=== PATIENT | female | born 1945 | race Caucasian/White ===

== ENCOUNTER 2016-11-10 18:14 | Inpatient (IN) | payer MEDICARE ==
[~2016-11-10] VITALS: Ht 162.6 cm; Wt 80.0 kg
[~2016-11-10 18:14] MED LIST: CALC-197 PO; DOCU1CAP39 PO; LOSA25TA31 PO; OCUTTAB; OMEP20TA PO; OMPR20CCR PO; OXYC-360 PO; RIVA10 PO; TAB-TAB PO; VITA500T10 PO; VITA500T49 PO
[2016-11-10 20:34] VITALS: BP 124/71; PULSE 104; RESP 18; TEMP 100.2; O2SAT 94
--- NOTE | 2016-11-10 21:01 | PD ---
HPI Chief Complaint: GI Complaint Time Seen by Provider: 20:50 Travel History International Travel<30 days: No Contact w/Intl Traveler<30days: No Traveled to known affect area: No History of Present Illness HPI 71-year-old female presents the emergency department after being seen in the urgent care with witnessed episode of santos blood in her emesis and transferred by EMS for santos blood in the emesis as well as black tarry stools since yesterday. Patient states she felt she had some food poisoning which caused her to have some vomiting through the day yesterday which then got progressively worse today. Patient states she has a history of this approximately 6 months ago where she was hospitalized and had an endoscopy and colonoscopy without finding of active bleeding at that time. Patient currently is taking Prilosec as well as meloxicam and losartan. She currently is not complaining of pain, only nausea. She is allergic to nabumetone. PFSH Past Medical History Arthritis: Yes Cancer: No Cardiovascular Problems: Yes Diabetes: No Endocrine: No GERD: Yes Glaucoma: No Genitourinary: No Hepatitis: No Hiatal Hernia: No Hypertension: Yes Immune Disorder: No Musculoskeletal: Yes Neurologic: No Psychiatric: No Reproductive: No Respiratory: No Thyroid Disease: No ?: Not Past Surgical History Abdominal Surgery: Yes (SPLENECTOMY) Joint Replacement: Yes (LEFT KNEE) Pacemaker: No Social History Alcohol Use: No Tobacco Use: No Substance Use: No Allergies-Medications (Allergen,Severity, Reaction): Coded Allergies: Nabumetone (Unverified Allergy, Unknown, 11/10/16) Reported Meds & Prescriptions Reported Meds & Active Scripts Active Reported Glucosamine (Glucosamine Sulfate) 500 Mg Cap 500 Mg PO DAILY Calcium 600 + D (Calcium Carbonate-Cholecalciferol) 600-200 Mg-Unit Tab 1 Tab PO BID Vitamin C (Ascorbic Acid) 100 Mg Chew 100 Mg CHEW Aspirin 81 Mg Tabdr 81 Mg PO DAILY Prilosec (Omeprazole) 20 Mg Cap 20 Mg PO DAILY [amlodipine besylate] 25 Mg PO DAILY Meloxicam 15 Mg Tab 15 Mg PO DAILY Review of Systems General / Constitutional: No: Fever Eyes: No: Visual changes HENT: Positive: Lightheadedness (upon standing today.), No: Headaches Cardiovascular: No: Chest Pain or Discomfort Respiratory: No: Shortness of Breath Gastrointestinal: Positive: Nausea, Vomiting, Hematemesis, Hematochezia, Changes in Bowel Habits, Loss of Appetite, No: Diarrhea, Abdominal Pain Genitourinary: No: Dysuria Musculoskeletal: No: Pain Skin: No Rash Neurologic: No: Weakness Psychiatric: No: Depression Endocrine: No: Polydipsia Hematologic/Lymphatic: No: Easy Bruising Physical Exam Narrative GENERAL: Patient appears in no acute distress. SKIN: Warm and dry. Normal turgor. Moderate pallor HEAD: Atraumatic. Normocephalic. EYES: Pupils equal and round. No scleral icterus. No injection or drainage. ENT: No nasal bleeding or discharge. Mucous membranes pink and moist. Pharynx is clear. NECK: Trachea midline. No JVD. Supple nontender. CARDIOVASCULAR: Regular rate and rhythm. No murmurs appreciated. RESPIRATORY: No accessory muscle use. Clear to auscultation. Breath sounds equal bilaterally. GASTROINTESTINAL: Abdomen soft, no specific point tenderness, nondistended. Hepatic and splenic margins not palpable. MUSCULOSKELETAL: Extremities without clubbing, cyanosis, or edema. No obvious deformities. NEUROLOGICAL: Awake and alert. No obvious cranial nerve deficits. Motor grossly within normal limits. Five out of 5 muscle strength in the arms and legs. Normal speech. PSYCHIATRIC: Appropriate mood and affect; insight and judgment normal. Data Data Last Documented VS Vital Signs Date Time Temp Pulse Resp B/P Pulse Ox O2 Delivery O2 Flow Rate FiO2 11/10/16 21:25 98.2 110 16 139/73 96 Room Air Orders Complete Blood Count With Diff (11/10/16 21:01) Comprehensive Metabolic Panel (11/10/16 21:) Lipase (11/10/16 21:01) Lactic Acid (11/10/16 21:01) Prothrombin Time / Inr (Pt) (11/10/16 21:01) Act Partial Throm Time (Ptt) (11/10/16 21:01) Urinalysis - C+S If Indicated (11/10/16 21:01) Iv Access Insert/Monitor (11/10/16 21:) Ecg Monitoring (11/10/16 21:) Oximetry (11/10/16 21:01) NPO (11/10/16 21:01) Ondansetron Inj (Zofran Inj) (11/10/16 21:15) Sodium Chloride 0.9% Flush (Ns Flush) (11/10/16 21:15) Electrocardiogram (11/10/16 21:01) Pantoprazole Inj (Protonix Inj) (11/10/16 21:15) Pantoprazole Inj (Protonix Inj) (11/10/16 21:15) Type And Screen (11/10/16 21:01) Admit Order (Ed Use Only) (11/10/16 23:03) Labs Laboratory Tests Test 11/10/16 21:31 White Blood Count 14.8 TH/MM3 Red Blood Count 4.27 MIL/MM3 Hemoglobin 9.8 GM/DL Hematocrit 31.9 % Mean Corpuscular Volume 74.7 FL Mean Corpuscular Hemoglobin 22.9 PG Mean Corpuscular Hemoglobin 30.6 % Concent Red Cell Distribution Width 16.3 % Platelet Count 511 TH/MM3 Mean Platelet Volume 8.3 FL Neutrophils (%) (Auto) 81.5 % Lymphocytes (%) (Auto) 14.8 % Monocytes (%) (Auto) 3.4 % Eosinophils (%) (Auto) 0.0 % Basophils (%) (Auto) 0.3 % Neutrophils # (Auto) 12.1 TH/MM3 Lymphocytes # (Auto) 2.2 TH/MM3 Monocytes # (Auto) 0.5 TH/MM3 Eosinophils # (Auto) 0.0 TH/MM3 Basophils # (Auto) 0.0 TH/MM3 CBC Comment AUTO DIFF Differential Comment AUTO DIFF CONFIRMED Platelet Estimate HIGH Platelet Morphology Comment NORMAL Acanthocytes OCC Keratocytes OCC Prothrombin Time 11.1 SEC Prothromb Time International 1.0 RATIO Ratio Activated Partial 21.8 SEC Thromboplast Time Urine Color LIGHT-YELLOW Urine Turbidity CLEAR Urine pH 5.5 Urine Specific [place] 1.013 Urine Protein NEG mg/dL Urine Glucose (UA) NEG mg/dL Urine Ketones NEG mg/dL Urine Occult Blood SMALL Urine Nitrite NEG Urine Bilirubin NEG Urine Urobilinogen LESS THAN 2.0 MG/DL Urine Leukocyte Esterase MOD Urine RBC LESS THAN 1 /hpf Urine WBC 6 /hpf Urine Squamous Epithelial <1 /hpf Cells Urine Bacteria RARE /hpf Microscopic Urinalysis Comment CULT NOT INDICATED Sodium Level 139 MEQ/L Potassium Level 3.8 MEQ/L Chloride Level 107 MEQ/L Carbon Dioxide Level 23.0 MEQ/L Anion Gap 9 MEQ/L Blood Urea Nitrogen 41 MG/DL Creatinine 0.78 MG/DL Estimat Glomerular Filtration 73 ML/MIN Rate Random Glucose 133 MG/DL Lactic Acid Level 1.8 mmol/L Calcium Level 8.0 MG/DL Total Bilirubin 0.4 MG/DL Aspartate Amino Transf 10 U/L (AST/SGOT) Alanine Aminotransferase 15 U/L (ALT/SGPT) Alkaline Phosphatase 87 U/L Total Protein 6.9 GM/DL Albumin 3.0 GM/DL Lipase 173 U/L Blood Type B NEGATIVE Antibody Screen NEGATIVE MDM Medical Decision Making Medical Screen Exam Complete: Yes Emergency Medical Condition: Yes Differential Diagnosis Upper GI bleed with hematemesis. Melena. Nausea and vomiting. Narrative Course Patient is medically stable at time of exam. Labs drawn including CBC, CMP, PT PTT and INR, urinalysis and type and screen 2 units is ordered. IV access is obtained patient is given a loading dose of 80 mg pantoprazole IV with pantoprazole 80 mg IV drip. 4 mg Zofran IV is given. Patient is given 1000 miles normal saline bolus. CBC shows leukocytosis of 14.8. Hemoglobin of 9.8 with hematocrit of 31.9. Platelets are elevated at 511. CMP shows BUN of 41. Creatinine of 0.78. Random glucose is 133. Calcium is 8.0. Is 3.0. Lactic acid is 1.8. Urinalysis shows small amount of occult blood, moderate = esterase with less than 1 rbc's seen and 6 white blood cells per high-power field with rare bacteria. Culture is not indicated. Coag study shows PT of 11.1 and INR 1.0. Call was placed to the hospitalist for admission. Patient was discussed with Dr. Aquino, who agreed to admit the patient. Diagnosis Primary Impression: GI (gastrointestinal bleed) Qualified Code: K92.2 - Gastrointestinal hemorrhage, unspecified gastrointestinal hemorrhage type Admitting Information Admitting Physician Requests: Admit Condition: Stable Salty Thompson Nov 10, 2016 21:01 Salty Thompson Nov 10, 2016 21:01
[2016-11-10] MEDS ORDERED: ONDANSETRON HCL 4 MG/2 ML VIAL IVP ONE (21:15)
[2016-11-10] MEDS ORDERED: SODIUM CHLORIDE 0.9% FLUSH 5 ML FLUSH IVF PRN (21:15)
[2016-11-10] MEDS ORDERED: PANTOPRAZOLE INJ 80 MG in SODIUM CHLORIDE 0.9% INJ 35 ML IV ONE (21:15)
[2016-11-10] MEDS ORDERED: PANTOPRAZOLE INJ 80 MG in SODIUM CHLORIDE 0.9% INJ 100 ML IV SCH (21:15)
[2016-11-10 21:25] VITALS: BP 139/73; PULSE 110; RESP 16; TEMP 98.2; O2SAT 96
--- NOTE | 2016-11-10 21:27 | PD ---
Physical Exam Date Seen by Provider: Nov 10, 2016 Narrative GI bleed Data Data Last Documented VS Vital Signs Date Time Temp Pulse Resp B/P Pulse Ox O2 Delivery O2 Flow Rate FiO2 11/10/16 20:34 100.2 104 18 124/71 94 Orders Complete Blood Count With Diff (11/10/16 21:01) Comprehensive Metabolic Panel (11/10/16 21:01) Lipase (11/10/16 21:01) Lactic Acid (11/10/16 21:01) Prothrombin Time / Inr (Pt) (11/10/16 21:01) Act Partial Throm Time (Ptt) (11/10/16 21:01) Urinalysis - C+S If Indicated (11/10/16 21:01) Iv Access Insert/Monitor (11/10/16 21:) Ecg Monitoring (11/10/16 21:01) Oximetry (11/10/16 21:01) NPO (11/10/16 21:01) Ondansetron Inj (Zofran Inj) (11/10/16 21:15) Sodium Chloride 0.9% Flush (Ns Flush) (11/10/16 21:15) Electrocardiogram (11/10/16 21:01) Pantoprazole Inj (Protonix Inj) (11/10/16 21:15) Pantoprazole Inj (Protonix Inj) (11/10/16 21:15) Type And Screen (11/10/16 21:01) MDM Supervised Visit with VEE: Yes Narrative Course I, Dr. Giraldo, have reviewed the advance practice practitioner's documentation and am in agreement, met with the patient face to face, made the diagnosis, and the medical decision making was done by me. *My assessment and Findings: Patient is pink. She has good distal pulses. Her abdomen is soft and nontender. Leona Giraldo MD Nov 10, 2016 21:27
[2016-11-10 21:44] LABS: AUTOMATED NEUTROPHIL # 12.1 TH/MM3 (1.8-7.7); BASOPHIL % 0.3 % (0.0-2.0); HEMATOCRIT 31.9 % (35.0-46.0); LYMPH % 14.8 % (9.0-44.0); LYMPHOCYTE # 2.2 TH/MM3 (1.0-4.8); MEAN CELL VOLUME 74.7 FL (80.0-100.0); MEAN CORPUSCULAR HEMOGLOBIN 22.9 PG (27.0-34.0); MEAN CORPUSCULAR HGB CONC 30.6 % (32.0-36.0); MONO % 3.4 % (0.0-8.0); NEUT % 81.5 % (16.0-70.0); PLATELET COUNT 511 TH/MM3 (150-450); RED BLOOD COUNT 4.27 MIL/MM3 (4.00-5.30); RED CELL DISTRIBUTION WIDTH 16.3 % (11.6-17.2); WHITE BLOOD COUNT 14.8 TH/MM3 (4.0-11.0)
[2016-11-10 21:47] LABS: HEMO FLAGS AUTO DIFF
[2016-11-10 21:54] LABS: APTT (PATIENT) 21.8 SEC (24.3-30.1); PROTHROMBIN TIME - PATIENT 11.1 SEC (9.8-11.6)
[2016-11-10 22:02] LABS: BACTERIA, URINE RARE /hpf; BLOOD, URINE SMALL (NEG); COMMENT (UR) CULT NOT INDICATED; CULTURE IF INDICATED CULT NOT INDICATED; GLUCOSE,URINE NEG (NEG); KETONE, URINE NEG (NEG); NITRITE,URINE NEG (NEG); PH, URINE 5.5 (5.0-8.5); SQUAMOUS EPITHELIAL CELL URINE <1 /hpf (0-5); URINE COLOR LIGHT-YELLOW (YELLW/STRAW)
[2016-11-10 22:04] LABS: ANION GAP 9 MEQ/L (5-15); AST (GOT) 10 U/L (15-37); BLOOD UREA NITROGEN 41 MG/DL (7-18); CHLORIDE 107 MEQ/L (98-107); GLOMERULAR FILTRATION RATE 73 ML/MIN (>89); POTASSIUM 3.8 MEQ/L (3.5-5.1); SODIUM (NA) 139 MEQ/L (136-145)
[2016-11-10 22:07] LABS: ALKALINE PHOSPHATASE 87 U/L (45-117); ALT (GPT) 15 U/L (10-53); TOTAL BILIRUBIN ADULT 0.4 MG/DL (0.2-1.0)
[2016-11-10] MEDS ORDERED: VITA100C6 CHEW (22:20)
[2016-11-10] MEDS ORDERED: CALC1TAB30 PO (22:20)
[2016-11-10] MEDS ORDERED: PRIL20CA9 PO (22:20)
[2016-11-10] MEDS ORDERED: amlodipine besylate PO (22:20)
[2016-11-10] MEDS ORDERED: GLUC500C5 PO (22:20)
[2016-11-10] MEDS ORDERED: ASPI1TAB69 PO (22:20)
[2016-11-10] MEDS ORDERED: MELO-1 PO (22:20)
[2016-11-10 22:45] LABS: ACANTHOCYTES OCC (NORMAL); KERATOCYTES OCC (NORMAL); PLATELET ESTIMATE SMEAR HIGH (NORMAL); PLATELET MORPHOLOGY NORMAL (NORMAL); SCAN/DIFF AUTO DIFF CONFIRMED
--- NOTE | 2016-11-10 23:14 | HHI.HP ---
HPI Service [facility] Primary Care Physician Tomasz Mims MD Admission Diagnosis GI Bleed Diagnoses: (1) GI (gastrointestinal bleed) Diagnosis: Principal (2) Sepsis Diagnosis: Principal (3) UTI (urinary tract infection) Diagnosis: Principal Travel History International Travel<30 Days: No Contact w/Intl Traveler <30 Da: No Traveled to Known Affected Are: No History of Present Illness Is a 71-year-old female with a PMH of HTN and GERD who was sent to the ER from [facility] secondary to hematemesis and melena x1 day. Pt reports nausea/vomiting since yesterday w/ no significant improvement. While at Urgent Care had recurrent episode of vomiting, noted to have bloody emesis and referred to ER. On ASA and Mobic at home. On arrival, BP 124/71, HR 104, O2 sat 94% on RA, Temp 100.2. WBC 14.8. Hgb 9.8, previously 12.6 on 05/16/12. BUN 41, GFR 73. Lactic Acid normal. LFTs normal. UA positive for UTI. Started on Protonix gtt in ER. GI consulted by ER physician. Review of Systems Except as stated in HPI: all other systems reviewed are Neg ROS: 14 point review of systems otherwise negative. Past Family Social History Past Medical History PMH: HTN and GERD Past Surgical History PAST SURGICAL HISTORY: Splenectomy, Left Knee Replacement Allergies: Coded Allergies: Nabumetone (Unverified Allergy, Unknown, 11/10/16) Family History PAST FAMILY HISTORY: Reviewed. No h/o DM or CAD Social History PAST SOCIAL HISTORY: Negative for alcohol, tobacco or drugs. Physical Exam Vital Signs Vital Signs Date Time Temp Pulse Resp B/P Pulse Ox O2 Delivery O2 Flow Rate FiO2 11/10/16 21:25 98.2 110 16 139/73 96 Room Air 11/10/16 20:34 100.2 104 18 124/71 94 Physical Exam PE: GENERAL: Middle-aged white female in no acute distress, appears mildly pale. HEENT: PERRLA, EOMI. No scleral icterus or conjunctival pallor. No lid lag or facial droop. CARDIOVASCULAR: Regular rate and rhythm. No obvious murmurs to auscultation. No chest tenderness to palpation. RESPIRATORY: No obvious rhonchi or wheezing. Clear to auscultation. Breath sounds equal bilaterally. GASTROINTESTINAL: Abdomen soft, non-tender, nondistended. BS normal. MUSCULOSKELETAL: Extremities without clubbing, cyanosis, or edema. No obvious deformities. NEUROLOGICAL: Awake, alert and oriented x4. No focal neurologic deficits. Moving both upper and lower extremities spontaneously. Laboratory Laboratory Tests Test 11/10/16 21:31 White Blood Count 14.8 Red Blood Count 4.27 Hemoglobin 9.8 Hematocrit 31.9 Mean Corpuscular Volume 74.7 Mean Corpuscular Hemoglobin 22.9 Mean Corpuscular Hemoglobin 30.6 Concent Red Cell Distribution Width 16.3 Platelet Count 511 Mean Platelet Volume 8.3 Neutrophils (%) (Auto) 81.5 Lymphocytes (%) (Auto) 14.8 Monocytes (%) (Auto) 3.4 Eosinophils (%) (Auto) 0.0 Basophils (%) (Auto) 0.3 Neutrophils # (Auto) 12.1 Lymphocytes # (Auto) 2.2 Monocytes # (Auto) 0.5 Eosinophils # (Auto) 0.0 Basophils # (Auto) 0.0 CBC Comment AUTO DIFF Differential Comment AUTO DIFF CONFIRMED Platelet Estimate HIGH Platelet Morphology Comment NORMAL Acanthocytes OCC Keratocytes OCC Prothrombin Time 11.1 Prothromb Time International 1.0 Ratio Activated Partial 21.8 Thromboplast Time Urine Color LIGHT-YELLOW Urine Turbidity CLEAR Urine pH 5.5 Urine Specific [place] 1.013 Urine Protein NEG Urine Glucose (UA) NEG Urine Ketones NEG Urine Occult Blood SMALL Urine Nitrite NEG Urine Bilirubin NEG Urine Urobilinogen LESS THAN 2.0 Urine Leukocyte Esterase MOD Urine RBC LESS THAN 1 Urine WBC 6 Urine Squamous Epithelial <1 Cells Urine Bacteria RARE Microscopic Urinalysis Comment CULT NOT INDICATED Sodium Level 139 Potassium Level 3.8 Chloride Level 107 Carbon Dioxide Level 23.0 Anion Gap 9 Blood Urea Nitrogen 41 Creatinine 0.78 Estimat Glomerular Filtration 73 Rate Random Glucose 133 Lactic Acid Level 1.8 Calcium Level 8.0 Total Bilirubin 0.4 Aspartate Amino Transf 10 (AST/SGOT) Alanine Aminotransferase 15 (ALT/SGPT) Alkaline Phosphatase 87 Total Protein 6.9 Albumin 3.0 Lipase 173 Blood Type B NEGATIVE Antibody Screen NEGATIVE Result Diagram: 11/10/16213011/10/162130 Assessment and Plan Problem List: (1) GI (gastrointestinal bleed) ICD Code: K92.2 Status: Acute (2) Sepsis ICD Code: A41.9 Status: Acute (3) UTI (urinary tract infection) ICD Code: N39.0 Status: Acute Assessment and Plan A/P: 1. GI Bleed: acute onset of nausea/vomiting w/ hematemesis and melena x1 day. Hgb 9.8, previously 12.6 on 05/16/12, +pallor on exam. Type & Screen, repeat Hgb/Hct, transfuse as needed. GI Consulted by ER physician. Started on Protonix gtt. IVF for hydration. Hold home ASA/Mobic. 2. Sepsis: Temp 100.2, HR 104, WBC 14.8, Source-UTI. Follow up urine cultures. Start IV Rocephin, IVF for hydration. 3. UTI: U/a w/ UTI. Start on IV Abx as above, IVF for hydration. 4. DVT Prophylaxis: Pharmacologic contraindications secondary to GI Bleed. 5. [employer] worker DC planning as needed. 6. Case discussed at length with the ER physician. Physician Certification 2 Midnight Certification Type: Admission for Inpatient Services Order for Inpatient Services The services are ordered in accordance with Medicare regulations or non- Medicare payer requirements, as applicable. In the case of services not specified as inpatient-only, they are appropriately provided as inpatient services in accordance with the 2-midnight benchmark. Estimated LOS (days): 2 days is the estimated time the patient will need to remain in the hospital, assuming treatment plan goals are met and no additional complications. Post-Hospital Plan: Not yet determined Problem Qualifiers (1) GI (gastrointestinal bleed): Qualified Code: K92.2 - Gastrointestinal hemorrhage, unspecified gastrointestinal hemorrhage type Britt Aquino MD Nov 10, 2016 23:14
[2016-11-10] MEDS ORDERED: MORPHINE SULFATE 4 MG/ML INJ IV PRN (23:15)
[2016-11-10] MEDS ORDERED: ONDANSETRON HCL 4 MG/2 ML VIAL IVP PRN (23:15)
[2016-11-10] MEDS ORDERED: SODIUM CHLORIDE 0.9% FLUSH 5 ML FLUSH FLUSH PRN (23:15)
[2016-11-10] MEDS ORDERED: ACETAMINOPHEN 325 MG TAB PO PRN (23:15)
[2016-11-10] MEDS ORDERED: ACETAMINOPHEN/HYDROcodone 325 MG/5 MG TAB PO PRN (23:15)
[2016-11-10] MEDS ORDERED: BISACODYL 10 MG SUPP PR PRN (23:15)
[2016-11-10] MEDS: cefTRIAXone INJ 1,000 MG in SODIUM CHLORIDE 0.9% INJ 100 ML IV SCH (23:54)
[2016-11-10] MEDS: SODIUM CHLOR 0.9% 1000 ML INJ 1,000 ML IV SCH (23:54)
[2016-11-10 23:56] VITALS: BP 108/57; PULSE 97; RESP 14; O2SAT 96
[2016-11-11] VITALS (9 sets, daily range): BP systolic 107–120; BP diastolic 60–68; PULSE 75–103; RESP 14–18; TEMP 97.8–98.3; O2SAT 95–99
[2016-11-11 05:20] LABS: AUTOMATED NEUTROPHIL # 10.2 TH/MM3 (1.8-7.7); BASOPHIL # 0.1 TH/MM3 (0-0.2); BASOPHIL % 0.4 % (0.0-2.0); LYMPH % 20.5 % (9.0-44.0); MEAN CELL VOLUME 75.5 FL (80.0-100.0); MEAN CORPUSCULAR HEMOGLOBIN 23.3 PG (27.0-34.0); MEAN CORPUSCULAR HGB CONC 30.9 % (32.0-36.0); MONO % 8.5 % (0.0-8.0); NEUT % 70.6 % (16.0-70.0); PLATELET COUNT 410 TH/MM3 (150-450); RED BLOOD COUNT 3.45 MIL/MM3 (4.00-5.30); RED CELL DISTRIBUTION WIDTH 16.3 % (11.6-17.2); WHITE BLOOD COUNT 14.5 TH/MM3 (4.0-11.0)
[2016-11-11 05:28] LABS: ANION GAP 8 MEQ/L (5-15); AST (GOT) 7 U/L (15-37); BICARBONATE 23.2 MEQ/L (21.0-32.0); BLOOD UREA NITROGEN 34 MG/DL (7-18); CHLORIDE 112 MEQ/L (98-107); GLOMERULAR FILTRATION RATE 73 ML/MIN (>89); POTASSIUM 3.5 MEQ/L (3.5-5.1); SODIUM (NA) 143 MEQ/L (136-145)
[2016-11-11 05:33] LABS: ALKALINE PHOSPHATASE 66 U/L (45-117); ALT (GPT) 11 U/L (10-53); TOTAL BILIRUBIN ADULT 0.4 MG/DL (0.2-1.0)
[2016-11-11 05:37] LABS: HEMO FLAGS AUTO DIFF
[2016-11-11 07:37] LABS: ACANTHOCYTES OCC (NORMAL); KERATOCYTES OCC (NORMAL); OVALOCYTES 1+ (NORMAL); SCAN/DIFF AUTO DIFF CONFIRMED; SPHEROCYTES OCC (NORMAL)
--- NOTE | 2016-11-11 07:53 | PD.CONS ---
HPI History of Present Illness This is a 71 year old female with PMH of HTN, GERD ( under control with Prilosec ) presents to the ER with complaints of melena, hematemesis that started on around 5 am. Patient states she was having black tarry stools and multiple coffee ground emesis up till 3 pm when she finally went to the urgent care for evaluation, while there, she had bloody emesis and was sent to the ER. Patient has no previous history of this, at first she thought this food poison, she took Imodium yesterday and that helped with stopping the stools. Last episode of hematemesis or melena was yesterday, none today. She takes Meloxicam once daily for a long time, she is also on ASA and Mobic. Denies alcohol intake. hgb on presentation was 9.8 ---> 8.1 today, was started on Protonix gtt. Of note, patient had EGD/colonoscopy on (04/13/16)-----> internal hemorrhoids, thrombosed hemorrhoids, diverticulosis, sessile polyp in the sigmoid, large hiatal hernia, acute gastritis, bx revealed tubular adenoma. On admission she had temp of 100.2, tachycardiac, elevated WBC and was found to have UTI (Henry Lawrence) PFSH Past Medical History PMH: HTN ,GERD, Hiatal hernia, diverticulosis Past Surgical History PAST SURGICAL HISTORY: Splenectomy, Left Knee Replacement, EGD/colonoscopy ( Henry Lawrence) Coded Allergies: Nabumetone (Unverified Allergy, Unknown, 11/10/16) Medications Current Medications Medications (Trade) Dose Ordered Sig/Masood Route Start Time Stop Time Status Last Admin Pantoprazole Sodium 80 mg/ Sodium Chloride 100 ml @ 10 mls/hr CONTINUOUS IV 11/10/16 21:15 11/10/16 23:42 (NS 1000 ml Inj) 1,000 ml @ 100 mls/hr Q10H IV 11/10/16 23:12 11/10/16 23:54 (NS Flush) 2 ml UNSCH PRN FLUSH 11/10/16 23:15 (NS Flush) 2 ml BID FLUSH 11/11/16 09:00 (Zofran Inj) 4 mg Q6H PRN IVP 11/10/16 23:15 (Dulcolax Supp) 10 mg DAILY PRN SD 11/10/16 23:15 (Tylenol) 650 mg Q6H PRN PO 11/10/16 23:15 ([place] 5-325 Mg) 1 tab Q4H PRN PO 11/10/16 23:15 Morphine Sulfate 2 mg 2 mg Q3H PRN IV 11/10/16 23:15 (Rocephin Inj/NS Inj) 100 ml @ 200 mls/hr Q24H IV 11/11/16 00:00 11/10/16 23:54 Family History Father had gastric cancer Social History PAST SOCIAL HISTORY: Negative for alcohol, tobacco or drugs. (Henry Lawrence ) Review of Systems Constitutional: DENIES: Fever, Chills Endocrine: DENIES: Polyuria Eyes: DENIES: Double Vision Ears, nose, mouth, throat: DENIES: Hoarseness Respiratory: DENIES: Shortness of breath Cardiovascular: DENIES: Lower Extremity Edema Gastrointestinal: COMPLAINS OF: Black stools, Diarrhea, Nausea, Vomiting, Hematemesis, DENIES: Abdominal pain, Bloody stools, Constipation, Difficulty Swallowing, Anorexia, Odynophagia, Swelling of Abdomen, Heartburn Genitourinary: DENIES: Hematuria Musculoskeletal: DENIES: Neck pain Integumentary: DENIES: Jaundice Hematologic/lymphatic: DENIES: Bruising Immunologic/allergic: DENIES: Eczema Neurologic: DENIES: Abnormal gait Psychiatric: DENIES: Anxiety (Henry Lawrence) GI Exam Vitals I&O Vital Signs Date Time Temp Pulse Resp B/P Pulse Ox O2 Delivery O2 Flow Rate FiO2 11/11/16 04:00 80 14 107/60 95 Nasal Cannula 2 11/11/16 02:01 75 16 120/68 99 Room Air 11/10/16 23:56 97 14 108/57 96 Room Air 11/10/16 21:25 98.2 110 16 139/73 96 Room Air 11/10/16 20:34 100.2 104 18 124/71 94 Laboratory Test 11/10/16 11/11/16 21:31 04:45 White Blood Count 14.8 TH/MM3 14.5 TH/MM3 Red Blood Count 4.27 MIL/MM3 3.45 MIL/MM3 Hemoglobin 9.8 GM/DL 8.1 GM/DL Hematocrit 31.9 % 26.0 % Mean Corpuscular Volume 74.7 FL 75.5 FL Mean Corpuscular Hemoglobin 22.9 PG 23.3 PG Mean Corpuscular Hemoglobin 30.6 % 30.9 % Concent Red Cell Distribution Width 16.3 % 16.3 % Platelet Count 511 TH/MM3 410 TH/MM3 Mean Platelet Volume 8.3 FL 8.4 FL Neutrophils (%) (Auto) 81.5 % 70.6 % Lymphocytes (%) (Auto) 14.8 % 20.5 % Monocytes (%) (Auto) 3.4 % 8.5 % Eosinophils (%) (Auto) 0.0 % 0.0 % Basophils (%) (Auto) 0.3 % 0.4 % Neutrophils # (Auto) 12.1 TH/MM3 10.2 TH/MM3 Lymphocytes # (Auto) 2.2 TH/MM3 3.0 TH/MM3 Monocytes # (Auto) 0.5 TH/MM3 1.2 TH/MM3 Eosinophils # (Auto) 0.0 TH/MM3 0.0 TH/MM3 Basophils # (Auto) 0.0 TH/MM3 0.1 TH/MM3 CBC Comment AUTO DIFF AUTO DIFF Differential Comment AUTO DIFF CONFIRMED Platelet Estimate HIGH Platelet Morphology Comment NORMAL Acanthocytes OCC Keratocytes OCC Prothrombin Time 11.1 SEC Prothromb Time International 1.0 RATIO Ratio Activated Partial 21.8 SEC Thromboplast Time Urine Color LIGHT-YELLOW Urine Turbidity CLEAR Urine pH 5.5 Urine Specific [place] 1.013 Urine Protein NEG mg/dL Urine Glucose (UA) NEG mg/dL Urine Ketones NEG mg/dL Urine Occult Blood SMALL Urine Nitrite NEG Urine Bilirubin NEG Urine Urobilinogen LESS THAN 2.0 MG/DL Urine Leukocyte Esterase MOD Urine RBC LESS THAN 1 /hpf Urine WBC 6 /hpf Urine Squamous Epithelial <1 /hpf Cells Urine Bacteria RARE /hpf Microscopic Urinalysis Comment CULT NOT INDICATED Sodium Level 139 MEQ/L 143 MEQ/L Potassium Level 3.8 MEQ/L 3.5 MEQ/L Chloride Level 107 MEQ/L 112 MEQ/L Carbon Dioxide Level 23.0 MEQ/L 23.2 MEQ/L Anion Gap 9 MEQ/L 8 MEQ/L Blood Urea Nitrogen 41 MG/DL 34 MG/DL Creatinine 0.78 MG/DL 0.78 MG/DL Estimat Glomerular Filtration 73 ML/MIN 73 ML/MIN Rate Random Glucose 133 MG/DL 103 MG/DL Lactic Acid Level 1.8 mmol/L Calcium Level 8.0 MG/DL 7.6 MG/DL Total Bilirubin 0.4 MG/DL 0.4 MG/DL Aspartate Amino Transf 10 U/L 7 U/L (AST/SGOT) Alanine Aminotransferase 15 U/L 11 U/L (ALT/SGPT) Alkaline Phosphatase 87 U/L 66 U/L Total Protein 6.9 GM/DL 5.6 GM/DL Albumin 3.0 GM/DL 2.7 GM/DL Lipase 173 U/L Blood Type B NEGATIVE Antibody Screen NEGATIVE Physical Examination HEENT: normocephalic; atraumatic; no jaundice. Throat is clear. NECK: Neck is supple, no JVD, no lymphadenopathy. CHEST: Chest is clear to auscultation and percussion. CARDIAC: Regular rate and rhythm with no murmur gallop or rubs. ABDOMEN: Soft, nondistended, nontender; no hepatosplenomegaly; bowel sounds are present in all four quadrants. EXTREMITIES: No clubbing, cyanosis, or edema. SKIN: Normal; no rash; no jaundice. 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 (Henry Lawrence) Assessment and Plan Plan - GI Bleed, hematemesis and melena x1 day. Differential diagnosis include PUD , gastric ulcer, bleeding from large hiatal hernia, She takes Meloxicam once daily for a long time, she is also on ASA and Mobic. Denies alcohol intake. hgb on presentation was 9.8 ---> 8.1 today, was started on Protonix gtt. Of note, patient had EGD/colonoscopy on (04/13/16)-----> internal hemorrhoids, thrombosed hemorrhoids, diverticulosis, sessile polyp in the sigmoid, large hiatal hernia, acute gastritis, bx revealed tubular adenoma. Protonix Gtt, iv hydration, monitor hh - Sepsis/UTI- Temp 100.2, HR 104, WBC 14.8, she is on IV Rocephin. - GERD under control with PPI - HTN per attending Plan: - NPO - EGD today - Cont. PPI Gtt - Monitor hh - Transfuse as needed - Notify Gi for active bleeding - Supportive care - Patient seen and examined by Dr. Hart and myself and this note is written on her behalf. (Henry Lawrence) Physician Comments seen, examined agree with above (Sandra Hart MD) Henry Lawrence Nov 11, 2016 07:53 Sandra Hart MD Nov 11, 2016 15:35
[2016-11-11] MEDS: SODIUM CHLOR 0.9% 1000 ML INJ 1,000 ML IV SCH ×2 (09:12→18:09)
[2016-11-11] MEDS: SODIUM CHLORIDE 0.9% FLUSH 5 ML FLUSH FLUSH SCH ×2 (09:18→20:42)
[2016-11-11] MEDS ORDERED: NORV2.5T PO (09:19)
[2016-11-11] MEDS ORDERED: PROPOFOL 200 MG/20 ML AMP IV ONE (10:20)
--- NOTE | 2016-11-11 11:23 | HHI.PR ---
Subjective Remarks in no acute distress. no nausea, hematemesis, abdominal pain. no diarrhea. had EGD earlier today. Objective Vitals Vital Signs Date Time Temp Pulse Resp B/P Pulse Ox O2 Delivery O2 Flow Rate FiO2 11/11/16 10:42 80 16 124/67 97 11/11/16 10:37 88 16 108/62 97 11/11/16 10:32 98.5 89 16 87/59 95 11/11/16 09:43 98.3 90 18 108/68 96 11/11/16 09:18 98.3 90 18 108/68 96 Nasal Cannula 11/11/16 07:41 16 11/11/16 07:25 98.3 81 18 114/61 97 Room Air 11/11/16 04:00 80 14 107/60 95 Nasal Cannula 2 11/11/16 02:01 75 16 120/68 99 Room Air 11/10/16 23:56 97 14 108/57 96 Room Air 11/10/16 21:25 98.2 110 16 139/73 96 Room Air 11/10/16 20:34 100.2 104 18 124/71 94 I/O 11/10/16 11/10/16 11/10/16 11/11/16 11/11/16 11/11/16 07:00 15:00 23:00 07:00 15:00 23:00 Intake Total 400 ml Balance 400 ml Intake IV Total 400 ml Result Diagram: 11/11/16 0445 11/11/16 0445 Objective Remarks GENERAL: This is a well-nourished, well-developed patient, in no apparent distress. CARDIOVASCULAR: Regular rate and regular rhythm without murmurs, gallops, or rubs. RESPIRATORY: Clear to auscultation. Breath sounds equal bilaterally. No wheezes , rales, or rhonchi. GASTROINTESTINAL: Abdomen soft, non-tender, nondistended. Normal, active bowel sounds MUSCULOSKELETAL: Extremities without clubbing, cyanosis, or edema. NEURO: Alert & Oriented x4 to person, place, time, situation. Moves all ext x4 Procedures EGD Medications and IVs Current Medications Ondansetron HCl (Zofran Inj) 4 mg ONCE ONCE IVP ; Start 11/10/16 at 21:15; Stop 11/10/16 at 21:16; Status DC IV Flush 2 ml 2 ml UNSCH PRN IVF FLUSH AFTER USING IV ACCESS; Start 11/10/16 at 21:15; Stop 11/10/16 at 23:20; Status DC Pantoprazole Sodium 80 mg/ Sodium Chloride 35 ml @ 420 mls/hr BOLUS ONCE IV Last administered on 11/10/16 22:47; Start 11/10/16 at 21:15; Stop 11/10/16 at 21:19; Status DC Pantoprazole Sodium 80 mg/ Sodium Chloride 100 ml @ 10 mls/hr CONTINUOUS IV Last administered on 11/10/16 23:42; Start 11/10/16 at 21:15 Sodium Chloride (NS 1000 ml Inj) 1,000 ml @ 100 mls/hr Q10H IV Last administered on 11/10/16 23:54; Start 11/10/16 at 23:12 IV Flush (NS Flush) 2 ml UNSCH PRN FLUSH FLUSH AFTER USING IV ACCESS; Start at 23:15 IV Flush (NS Flush) 2 ml BID FLUSH Last administered on 11/11/16 09:18; Start 11/11/16 at 09:00 Ondansetron HCl (Zofran Inj) 4 mg Q6H PRN IVP NAUSEA OR VOMITING; Start at 23:15 Bisacodyl (Dulcolax Supp) 10 mg DAILY PRN ME CONSTIPATION; Start 11/10/16 at 23 :15 Acetaminophen (Tylenol) 650 mg Q6H PRN PO FEVER/PAIN SCALE 1 TO 2; Start at 23:15 Acetaminophen/ Hydrocodone Bitart ([place] 5-325 Mg) 1 tab Q4H PRN PO PAIN SCALE 3 TO 5; Start 11/10/16 at 23:15 Morphine Sulfate 2 mg 2 mg Q3H PRN IV Pain 6-10; Start 11/10/16 at 23:15 Ceftriaxone Sodium/Sodium Chloride (Rocephin Inj/NS Inj) 100 ml @ 200 mls/hr Q24H IV Last administered on 11/10/16 23:54; Start 11/11/16 at 00:00 Propofol (Diprivan 200 Mg/20 ml Inj) 170 mg STK-MED ONCE IV ; Start 11/11/16 at 10:20; Stop 11/11/16 at 10:55; Status DC Diatrizoate Meglum/ Diatrizoate Sod ( Gastroview Liq) 18 ml ONCE ONCE PO ; Start 11/11/16 at 12:00; Stop 11/11/16 at 12:01 A/P Assessment and Plan A/P 1. GI Bleed: acute onset of nausea/vomiting w/ hematemesis and melena x1 day. continue PPI- GI consulted- s/p EGD with gastritis and Fundus superficial ulceration- CT of the abdomen pending. monitor H/H closely and transfuse as needed. 2. Sepsis: Temp 100.2, HR 104, WBC 14.8, Source-UTI. Follow up urine cultures. Started IV Rocephin, IVF for hydration. 3. UTI: U/a w/ UTI. Started on IV Abx as above, IVF for hydration. 4. DVT Prophylaxis: SCD's- Pharmacologic contraindications secondary to GI Bleed. Alonso Frank MD Nov 11, 2016 11:23
[2016-11-11] MEDS ORDERED: DIATRIZOATE MEGLUM/DIATRIZOATE SOD 9 ML CUP PO ONE (12:00)
[2016-11-11] MEDS ORDERED: IOHEXOL 350 MG/ML 10 ML VIAL (for RAD DIAG) IV ONE (14:44)
[2016-11-11] MEDS: PANTOPRAZOLE INJ 80 MG in SODIUM CHLORIDE 0.9% INJ 100 ML IV SCH (15:23)
--- NOTE | 2016-11-11 16:28 | RADRPT ---
EXAM DATE/TIME: 11/11/2016 14:26 [facility] COMPARISON: No previous studies available for comparison. INDICATIONS : Vomiting blood and blood in stool. Anemia. IV CONTRAST: 90 cc Omnipaque 350 (iohexol) IV ORAL CONTRAST: Prescribed oral contrast ingested. RADIATION DOSE: 9.96 CTDIvol (mGy) MEDICAL HISTORY : Hypertension. SURGICAL HISTORY : Splenectomy. ENCOUNTER: Initial ACUITY: 1 day PAIN SCALE: 0/10 LOCATION: upper quadrant TECHNIQUE: Volumetric scanning of the abdomen and pelvis was performed. Using automated exposure control and adjustment of the mA and/or kV according to patient size, radiation dose was kept as low as reasonably achievable to obtain optimal diagnostic quality images. FINDINGS: LOWER LUNGS: The visualized lower lungs are clear. LIVER: Homogeneous density without lesion. There is no dilation of the biliary tree. No calcifi ed gallstones. SPLEEN: Status post splenectomy. PANCREAS: Within normal limits. KIDNEYS: Normal in size and shape. There is no solid mass or hydronephrosis. There are small sim ple cysts current there is a 5 mm nonobstructing right renal calculus in the lower pole. ADRENAL GLANDS: Within normal limits. VASCULAR: There is no aortic aneurysm. 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 The fundal region is in the upper abdomen. ABDOMINAL WALL: Within normal limits. RETROPERITONEUM: There is no lymphadenopathy. BLADDER: No wall thickening or mass. REPRODUCTIVE: Within normal limits. INGUINAL: There is a mildly prominent oval node measuring 2.2 x 1.9 cm. MUSCULOSKELETAL: Within normal limits for patient age. CONCLUSION: 1. 5 mm nonobstructing right renal calculus. 2. Moderate size paraesophageal hernia with the mid body of the stomach herniated into the lower ches t. There is no evidence of obstruction. 3. Status post splenectomy. 4. Mildly prominent left inguinal lymph node measuring 2.2 x 1.9 cm. Kishan Mosley MD on November 11, 2016 at 16:01 Board Certified Radiologist. This report was verified electronically.
--- NOTE | 2016-11-11 17:12 | EKG ---
Date Performed: 11/10/2016 Time Performed: 21:55:54 PTAGE: 71 years EKG: SINUS TACHYCARDIA ABNORMAL RHYTHM ECG Poor R-wave progression. No specific ST-T wave change s in the inferior lead. Clinical correlation recommended. PREVIOUS TRACING : 05/04/2012 10.02 DOCTOR: Sonido Pitt Interpretating Date/Time 11/11/2016 17:01:37
[2016-11-12] VITALS (11 sets, daily range): BP systolic 101–137; BP diastolic 54–81; PULSE 78–107; RESP 15–20; TEMP 97.6–98.7; O2SAT 94–98
[2016-11-12] MEDS: PANTOPRAZOLE INJ 80 MG in SODIUM CHLORIDE 0.9% INJ 100 ML IV SCH ×3 (00:09→20:42)
[2016-11-12] MEDS: cefTRIAXone INJ 1,000 MG in SODIUM CHLORIDE 0.9% INJ 100 ML IV SCH (00:09)
[2016-11-12 05:11] LABS: AUTOMATED NEUTROPHIL # 6.5 TH/MM3 (1.8-7.7); BASOPHIL # 0.1 TH/MM3 (0-0.2); BASOPHIL % 0.8 % (0.0-2.0); EOSINOPHIL # 0.2 TH/MM3 (0-0.4); EOSINOPHIL % 1.7 % (0.0-4.0); HEMATOCRIT 22.2 % (35.0-46.0); LYMPH % 35.1 % (9.0-44.0); LYMPHOCYTE # 4.1 TH/MM3 (1.0-4.8); MEAN CORPUSCULAR HEMOGLOBIN 23.2 PG (27.0-34.0); MEAN CORPUSCULAR HGB CONC 30.9 % (32.0-36.0); NEUT % 55.4 % (16.0-70.0); PLATELET COUNT 389 TH/MM3 (150-450); RED BLOOD COUNT 2.95 MIL/MM3 (4.00-5.30); RED CELL DISTRIBUTION WIDTH 16.1 % (11.6-17.2); WHITE BLOOD COUNT 11.7 TH/MM3 (4.0-11.0)
[2016-11-12 05:20] LABS: HEMO FLAGS AUTO DIFF
[2016-11-12] MEDS: SODIUM CHLOR 0.9% 1000 ML INJ 1,000 ML IV SCH ×3 (06:30→20:42)
[2016-11-12 07:18] LABS: ACANTHOCYTES 1+ (NORMAL); KERATOCYTES OCC (NORMAL)
[2016-11-12 07:19] LABS: SCAN/DIFF AUTO DIFF CONFIRMED
[2016-11-12] MEDS: SODIUM CHLORIDE 0.9% FLUSH 5 ML FLUSH FLUSH SCH ×2 (08:29→20:42)
[2016-11-12] MEDS ORDERED: PNEUMOCOCCAL POLYVALENT INJ 25 MCG/0.5 ML SYR IM ONE (10:00)
[2016-11-12 11:41] LABS: C. DIFF EPI 027 PRESUMPTIVE NEGATIVE (NEGATIVE); C. DIFF TOXIN PCR NEGATIVE (NEGATIVE)
--- NOTE | 2016-11-12 13:56 | HHI.PR ---
Subjective Remarks still with black stools. noted a drop in H/H. received blood transfusion earlier. complaining of urinary urgency. Objective Vitals Vital Signs Date Time Temp Pulse Resp B/P Pulse Ox O2 Delivery O2 Flow Rate FiO2 11/12/16 12:00 97.9 83 17 123/68 94 11/12/16 08:41 98.4 91 16 114/81 96 11/12/16 08:33 98.2 91 16 135/73 96 11/12/16 08:00 98.7 85 17 116/57 94 11/12/16 04:00 97.9 80 17 101/54 96 11/12/16 00:00 98.3 91 17 123/72 98 11/11/16 20:00 97.8 103 17 118/64 98 11/11/16 16:00 98.2 86 18 114/68 98 I/O 11/11/16 11/11/16 11/11/16 11/12/16 11/12/16 11/12/16 07:00 15:00 23:00 07:00 15:00 23:00 Intake Total 1346 ml 1980 ml 240 ml 295 ml Output Total 250 ml Balance 1346 ml 1980 ml 240 ml 45 ml Intake Oral 946 ml 480 ml 240 ml IV Total 400 ml 1500 ml Packed Cells 295 ml Output Stool Total 250 ml # Voids 2 3 # Bowel Movements 4 2 Result Diagram: 11/12/16 0410 11/11/16 0445 Imaging Last Impressions Abdomen/Pelvis CT 11/11/16 0000 Signed Impressions: Service Date/Time: Friday, November 11, 2016 14:26 - CONCLUSION: 1. 5 mm nonobstructing right renal calculus. 2. Moderate size paraesophageal hernia with the mid body of the stomach herniated into the lower chest. There is no evidence of obstruction. 3. Status post splenectomy. 4. Mildly prominent left inguinal lymph node measuring 2.2 x 1.9 cm. Kishan Mosley MD Objective Remarks GENERAL: This is a well-nourished, well-developed patient, in no apparent distress. CARDIOVASCULAR: Regular rate and regular rhythm without murmurs, gallops, or rubs. RESPIRATORY: Clear to auscultation. Breath sounds equal bilaterally. No wheezes , rales, or rhonchi. GASTROINTESTINAL: Abdomen soft, non-tender, nondistended. Normal, active bowel sounds MUSCULOSKELETAL: Extremities without clubbing, cyanosis, or edema. NEURO: Alert & Oriented x4 to person, place, time, situation. Moves all ext x4 Procedures EGD Medications and IVs Current Medications Ondansetron HCl (Zofran Inj) 4 mg ONCE ONCE IVP ; Start 11/10/16 at 21:15; Stop 11/10/16 at 21:16; Status DC IV Flush 2 ml 2 ml UNSCH PRN IVF FLUSH AFTER USING IV ACCESS; Start 11/10/16 at 21:15; Stop 11/10/16 at 23:20; Status DC Pantoprazole Sodium 80 mg/ Sodium Chloride 35 ml @ 420 mls/hr BOLUS ONCE IV Last administered on 11/10/16 22:47; Start 11/10/16 at 21:15; Stop 11/10/16 at 21:19; Status DC Pantoprazole Sodium 80 mg/ Sodium Chloride 100 ml @ 10 mls/hr CONTINUOUS IV Last administered on 11/10/16 23:42; Start 11/10/16 at 21:15; Stop 11/11/16 at 14:50; Status DC Sodium Chloride (NS 1000 ml Inj) 1,000 ml @ 100 mls/hr Q10H IV Last administered on 11/12/16 11:26; Start 11/10/16 at 23:12 IV Flush (NS Flush) 2 ml UNSCH PRN FLUSH FLUSH AFTER USING IV ACCESS; Start at 23:15 IV Flush (NS Flush) 2 ml BID FLUSH Last administered on 11/12/16 08:29; Start 11/11/16 at 09:00 Ondansetron HCl (Zofran Inj) 4 mg Q6H PRN IVP NAUSEA OR VOMITING; Start at 23:15 Bisacodyl (Dulcolax Supp) 10 mg DAILY PRN DC CONSTIPATION; Start 11/10/16 at 23 :15 Acetaminophen (Tylenol) 650 mg Q6H PRN PO FEVER/PAIN SCALE 1 TO 2; Start at 23:15 Acetaminophen/ Hydrocodone Bitart ([place] 5-325 Mg) 1 tab Q4H PRN PO PAIN SCALE 3 TO 5; Start 11/10/16 at 23:15 Morphine Sulfate 2 mg 2 mg Q3H PRN IV Pain 6-10; Start 11/10/16 at 23:15 Ceftriaxone Sodium/Sodium Chloride (Rocephin Inj/NS Inj) 100 ml @ 200 mls/hr Q24H IV Last administered on 11/12/16 00:09; Start 11/11/16 at 00:00 Propofol (Diprivan 200 Mg/20 ml Inj) 170 mg STK-MED ONCE IV ; Start 11/11/16 at 10:20; Stop 11/11/16 at 10:55; Status DC Diatrizoate Meglum/ Diatrizoate Sod ( Gastroview Liq) 18 ml ONCE ONCE PO Last administered on 11/11/16 11:55; Start 11/11/16 at 12:00; Stop 11/11/16 at 12:01; Status DC Pneumococcal Polyvalent Vaccine (Pneumovax-23 Inj) 25 mcg ONCE ONCE IM ; Start 11/12/16 at 10:00; Stop 11/12/16 at 10:01; Status DC Iohexol 90 ml 90 ml STK-MED ONCE IV Last administered on 11/11/16 14:44; Start 11/11/16 at 14:44; Stop 11/11/16 at 14:45; Status DC Pantoprazole Sodium/Sodium Chloride (Protonix Inj/NS Inj) 100 ml @ 10 mls/hr Q10H IV Last administered on 11/12/16 11:24; Start 11/11/16 at 16:00 A/P Assessment and Plan A/P 1. GI Bleed: acute onset of nausea/vomiting w/ hematemesis and melena continue PPI- s/p EGD with gastritis and Fundus superficial ulceration- CT of the abdomen with paraesophageal hernia bleeding scan pending- GI following and surgery consulted 2.anemia- acute due to blood loss due to GI bleed received PRBC transfusion- will monitor H/H closely and transfuse as needed 3. Sepsisdue to [place]. Follow up urine cultures. Started IV Rocephin, IVF for hydration. repeat UA today. 4. DVT Prophylaxis: SCD's- Pharmacologic contraindications secondary to GI Bleed. Alonso Frank MD Nov 12, 2016 13:56
--- NOTE | 2016-11-12 14:25 | RADRPT ---
EXAM DATE/TIME: 11/12/2016 12:00 [facility] COMPARISON: No previous studies available for comparison. INDICATIONS : Blood in stool for one day. Rectal bleeding. DOSE: 20.2 mCi Tc99m Ultratag labeled red blood cells IV IMAGIN hr, 48 hrs MEDICAL HISTORY : Gastroesophageal reflux disease. Hypertension. SURGICAL HISTORY : Total knee replacement, left. Umbilical hernia repair. Splenectomy. ENCOUNTER: Initial ACUITY: 1 day PAIN SCALE: 0/10 LOCATION: upper quadrant TECHNIQUE: Following the modified in vitro labeling of autologous red cells, dynamic continuous images were acqu ired for the specified interval. FINDINGS: BIODISTRIBUTION: There is a very good labeling of red cells without significant uptake in the gastric wall. There is good delineation of the blood pool of the spleen and abdominal vessels. BLEEDING: No episodes of active GI bleeding are observed during specified interval of continuous observation. CONCLUSION: No GI bleed demonstrated. Eric Matthews MD on November 12, 2016 at 14:23 Board Certified Radiologist. This report was verified electronically.
--- NOTE | 2016-11-12 15:02 | HHI.GIFU ---
GI Follow-up Note Consult Follow-up Subjective: Patient laying in bed comfortably, had some black stool, bleeding scan negative . hb dropped , receiving prbc.Surgical consult appreciated Objective: PHYSICAL EXAMINATION: Vitals signs stable No fever Vital Signs Date Time Temp Pulse Resp B/P Pulse Ox O2 Delivery O2 Flow Rate FiO2 11/12/16 12:00 97.9 83 17 123/68 94 11/12/16 08:41 98.4 91 16 114/81 96 11/12/16 08:33 98.2 91 16 135/73 96 11/12/16 08:00 98.7 85 17 116/57 94 HEENT: Pupils round and reactive to light; normocephalic; atraumatic; no jaundice. Throat is clear, pale NECK: Neck is supple, no JVD, no lymphadenopathy. CHEST: Chest is clear to auscultation and percussion. CARDIAC: Regular rate and rhythm with no murmur gallop or rubs. ABDOMEN: Soft, nondistended, nontender; no hepatosplenomegaly; bowel sounds are present in all four quadrants. EXTREMITIES: No clubbing, cyanosis, or edema. SKIN: Normal; no rash; no jaundice. 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 Available Data (labs, X- Rays, Procedues) : Laboratory Tests Test 11/10/16 11/11/16 11/11/16 11/12/16 21:31 04:45 11:44 04:10 White Blood Count 14.8 TH/MM3 14.5 TH/MM3 11.7 TH/MM3 Red Blood Count 4.27 MIL/MM3 3.45 MIL/MM3 2.95 MIL/MM3 Hemoglobin 9.8 GM/DL 8.1 GM/DL 8.3 GM/DL 6.8 GM/DL Hematocrit 31.9 % 26.0 % 27.0 % 22.2 % Mean Corpuscular Volume 74.7 FL 75.5 FL 75.0 FL Mean Corpuscular Hemoglobin 22.9 PG 23.3 PG 23.2 PG Mean Corpuscular Hemoglobin 30.6 % 30.9 % 30.9 % Concent Red Cell Distribution Width 16.3 % 16.3 % 16.1 % Platelet Count 511 TH/MM3 410 TH/MM3 389 TH/MM3 Mean Platelet Volume 8.3 FL 8.4 FL 8.4 FL Neutrophils (%) (Auto) 81.5 % 70.6 % 55.4 % Lymphocytes (%) (Auto) 14.8 % 20.5 % 35.1 % Monocytes (%) (Auto) 3.4 % 8.5 % 7.0 % Eosinophils (%) (Auto) 0.0 % 0.0 % 1.7 % Basophils (%) (Auto) 0.3 % 0.4 % 0.8 % Neutrophils # (Auto) 12.1 TH/MM3 10.2 TH/MM3 6.5 TH/MM3 Lymphocytes # (Auto) 2.2 TH/MM3 3.0 TH/MM3 4.1 TH/MM3 Monocytes # (Auto) 0.5 TH/MM3 1.2 TH/MM3 0.8 TH/MM3 Eosinophils # (Auto) 0.0 TH/MM3 0.0 TH/MM3 0.2 TH/MM3 Basophils # (Auto) 0.0 TH/MM3 0.1 TH/MM3 0.1 TH/MM3 CBC Comment AUTO DIFF AUTO DIFF AUTO DIFF Differential Comment AUTO DIFF AUTO DIFF AUTO DIFF CONFIRMED CONFIRMED CONFIRMED Platelet Estimate HIGH Platelet Morphology Comment NORMAL Acanthocytes OCC OCC 1+ Keratocytes OCC OCC OCC Prothrombin Time 11.1 SEC Prothromb Time International 1.0 RATIO Ratio Activated Partial 21.8 SEC Thromboplast Time Urine Color LIGHT-YELLOW Urine Turbidity CLEAR Urine pH 5.5 Urine Specific [place] 1.013 Urine Protein NEG mg/dL Urine Glucose (UA) NEG mg/dL Urine Ketones NEG mg/dL Urine Occult Blood SMALL Urine Nitrite NEG Urine Bilirubin NEG Urine Urobilinogen LESS THAN 2.0 MG/DL Urine Leukocyte Esterase MOD Urine RBC LESS THAN 1 /hpf Urine WBC 6 /hpf Urine Squamous Epithelial <1 /hpf Cells Urine Bacteria RARE /hpf Microscopic Urinalysis Comment CULT NOT INDICATED Sodium Level 139 MEQ/L 143 MEQ/L Potassium Level 3.8 MEQ/L 3.5 MEQ/L Chloride Level 107 MEQ/L 112 MEQ/L Carbon Dioxide Level 23.0 MEQ/L 23.2 MEQ/L Anion Gap 9 MEQ/L 8 MEQ/L Blood Urea Nitrogen 41 MG/DL 34 MG/DL Creatinine 0.78 MG/DL 0.78 MG/DL Estimat Glomerular Filtration 73 ML/MIN 73 ML/MIN Rate Random Glucose 133 MG/DL 103 MG/DL Lactic Acid Level 1.8 mmol/L Calcium Level 8.0 MG/DL 7.6 MG/DL Total Bilirubin 0.4 MG/DL 0.4 MG/DL Aspartate Amino Transf 10 U/L 7 U/L (AST/SGOT) Alanine Aminotransferase 15 U/L 11 U/L (ALT/SGPT) Alkaline Phosphatase 87 U/L 66 U/L Total Protein 6.9 GM/DL 5.6 GM/DL Albumin 3.0 GM/DL 2.7 GM/DL Lipase 173 U/L Blood Type B NEGATIVE Antibody Screen NEGATIVE Spherocytes OCC Ovalocytes 1+ Erythrocyte Sedimentation Rate 6 mm/hr Test 11/12/16 11/12/16 05:53 09:30 Blood Type B NEGATIVE Crossmatch Leukocyte-Reduced Red Blood Cells Blood Bank Comment Stool C. difficile Toxin (PCR) NEGATIVE Stl C. difficile Toxin PRESUMPTIVE Epiderm 027 NEGATIVE ASSESSMENT/PLAN: microcytic anemia -suspect slow bleed from large hiatal hernia gi bleeding -stable at this time most likely secondary large hiatal hernia Recommendations soft diet transfuse to keep hb more than 8 capsule endoscopy op consider repeat colonoscopy if capsule endoscopy negative if gi w-up negative hematology consult fu op with surgery for possible hernia repair, biopsy of lymph node It was a pleasure seeing Layne Tellez. Thank you for this consult. Entered by: Sandra Valverde MD Nov 12, 2016 15:02
--- NOTE | 2016-11-12 16:11 | MB ---
cc: JANEY CHURCH M.D. DATE OF CONSULTATION: 11/12/2016. REASON FOR CONSULTATION: Acute blood loss anemia with hiatal hernia and left inguinal lymph node enlargement. HISTORY OF PRESENT ILLNESS: The patient is a 71-year-old female who was seen in the emergency room after being sent from urgent care with hematemesis and melena x1 day. The patient had some nausea and vomiting with no significant improvement. She was noted to have a hemoglobin of 9.8 with normal lactate and normal LFTs. The GI service was consulted and she underwent EGD by Dr. Hart. I have discussed the findings with her and the patient had some small ulcers that were superficial. CT of the abdomen demonstrated a paraesophageal hernia but no evidence of volvulus. REVIEW OF SYSTEMS: The review of systems is negative except for hypertension, GE reflux disease. All other reviewed systems are negative. PAST SURGICAL HISTORY: The past surgeries include: 1. Splenectomy. 2. Left total knee replacement in the past. ALLERGIES: NABUMETONE. MEDICATIONS: Her medications include: 1. Meloxicam. 2. Baby aspirin 81 milligrams. 3. Glucosamine 500 milligrams daily. 4. Vitamin C 100 milligrams daily 5. Meloxicam 15 milligrams p.o. daily. 6. Prilosec 20 milligrams p.o. daily. 7. Amlodipine 25 milligrams daily. SOCIAL HISTORY: She does not drink, smoke or use other substances. PHYSICAL EXAMINATION: GENERAL: The physical exam reveals with a female in no acute distress. VITAL SIGNS: Blood pressure 114/81, pulse 91, respirations 16, 96% saturation on room air and temperature 98.4. HEAD, EYES, EARS, NOSE, THROAT: Sclerae are anicteric. Pupils are reactive. CHEST: Chest is clear to auscultation. CARDIAC: Cardiac exam reveals regular rate and rhythm. ABDOMEN: Abdomen is soft and nontender. PULSES: Pulses are intact. EXTREMITIES: There is a well-healed longitudinal scar over the left knee. The patient has full range of motion all four extremities. LABORATORY DATA: Laboratory values demonstrate hemoglobin currently of 6.8 at 04:00 a.m. this morning. Hemoglobin was 9.8 yesterday. IMAGING STUDIES: The patient has just undergone bleeding scan prior to this dictation and it is complete and demonstrates no evidence of any bleeding. There is no activity above background. I have reviewed this with the radiologist and Dr. Hart, the sql consultant. I do not detect any adenopathy at this time and cannot appreciate it in the left groin. ASSESSMENT: GI hemorrhage. PLAN: 1. Will follow with you. 2. Agree with transfusion. 3. The patient may need to have a pill cam or push endoscopy depending on findings. 4. No surgery indicated at this time I do not believe the hiatal hernia is the cause of the blood loss, at least at the current time. Thank you for allowing us the opportunity to care for this patient with you. MD COOPER Lara/SAM /2:48 PM /4:04 PM
[2016-11-12 18:55] LABS: BLOOD, URINE TRACE (NEG); COMMENT (UR) CULT NOT INDICATED; CULTURE IF INDICATED CULT NOT INDICATED; GLUCOSE,URINE NEG (NEG); KETONE, URINE NEG (NEG); MUCUS URINE FEW /lpf (OCC); NITRITE,URINE NEG (NEG); PH, URINE 5.5 (5.0-8.5); SQUAMOUS EPITHELIAL CELL URINE 1 /hpf (0-5); URINE COLOR YELLOW (YELLW/STRAW)
[2016-11-12 20:15] LABS: HEMATOCRIT 29.7 % (35.0-46.0)
[2016-11-13] VITALS: BP 116/78; PULSE 91; RESP 20; TEMP 99.5; O2SAT 93
[2016-11-13] MEDS: cefTRIAXone INJ 1,000 MG in SODIUM CHLORIDE 0.9% INJ 100 ML IV SCH (00:19)
[2016-11-13 04:00] VITALS: BP 128/75; PULSE 87; RESP 20; TEMP 98.2; O2SAT 93
[2016-11-13 05:52] LABS: AUTOMATED NEUTROPHIL # 6.5 TH/MM3 (1.8-7.7); BASOPHIL # 0.1 TH/MM3 (0-0.2); EOSINOPHIL # 0.2 TH/MM3 (0-0.4); EOSINOPHIL % 2.1 % (0.0-4.0); HEMATOCRIT 28.6 % (35.0-46.0); LYMPH % 28.6 % (9.0-44.0); LYMPHOCYTE # 3.2 TH/MM3 (1.0-4.8); MEAN CELL VOLUME 74.9 FL (80.0-100.0); MEAN CORPUSCULAR HEMOGLOBIN 24.5 PG (27.0-34.0); MEAN CORPUSCULAR HGB CONC 32.8 % (32.0-36.0); MONO % 10.9 % (0.0-8.0); NEUT % 57.4 % (16.0-70.0); PLATELET COUNT 404 TH/MM3 (150-450); RED BLOOD COUNT 3.82 MIL/MM3 (4.00-5.30); RED CELL DISTRIBUTION WIDTH 16.7 % (11.6-17.2); WHITE BLOOD COUNT 11.3 TH/MM3 (4.0-11.0)
[2016-11-13 05:53] LABS: HEMO FLAGS AUTO DIFF
[2016-11-13] MEDS: SODIUM CHLORIDE 0.9% FLUSH 5 ML FLUSH FLUSH SCH (07:07)
[2016-11-13 07:27] LABS: ACANTHOCYTES 1+ (NORMAL); SCAN/DIFF AUTO DIFF CONFIRMED
[2016-11-13] MEDS: PANTOPRAZOLE INJ 80 MG in SODIUM CHLORIDE 0.9% INJ 100 ML IV SCH (07:50)
[2016-11-13 08:00] VITALS: BP 125/77; PULSE 83; RESP 17; TEMP 98.5; O2SAT 93
--- NOTE | 2016-11-13 10:23 | HHI.PR ---
Subjective Subjective Notes Feels great, up to chair. Wants to go home. Tolerating a diet, no signs of further bleeding. Objective Vitals/I&O Vital Signs Date Time Temp Pulse Resp B/P Pulse Ox O2 Delivery O2 Flow Rate FiO2 11/13/16 08:00 98.5 83 17 125/77 93 11/11/16 13:51 Room Air 11/11/16 04:00 2 Labs Laboratory Tests Test 11/12/16 11/12/16 11/13/16 18:32 19:55 04:56 Urine Color YELLOW Urine Turbidity CLEAR Urine pH 5.5 Urine Specific [place] 1.012 Urine Protein NEG Urine Glucose (UA) NEG Urine Ketones NEG Urine Occult Blood TRACE Urine Nitrite NEG Urine Bilirubin NEG Urine Urobilinogen LESS THAN 2.0 Urine Leukocyte Esterase NEG Urine RBC 1 Urine WBC 3 Urine Squamous Epithelial 1 Cells Urine Mucus FEW Microscopic Urinalysis Comment CULT NOT INDICATED Hemoglobin 9.6 9.4 Hematocrit 29.7 28.6 Haptoglobin 96 Iron Level 253 Ferritin 13 Lactate Dehydrogenase 172 Vitamin B12 Level 600 Folate 17.6 White Blood Count 11.3 Red Blood Count 3.82 Mean Corpuscular Volume 74.9 Mean Corpuscular Hemoglobin 24.5 Mean Corpuscular Hemoglobin 32.8 Concent Red Cell Distribution Width 16.7 Platelet Count 404 Mean Platelet Volume 8.2 Neutrophils (%) (Auto) 57.4 Lymphocytes (%) (Auto) 28.6 Monocytes (%) (Auto) 10.9 Eosinophils (%) (Auto) 2.1 Basophils (%) (Auto) 1.0 Neutrophils # (Auto) 6.5 Lymphocytes # (Auto) 3.2 Monocytes # (Auto) 1.2 Eosinophils # (Auto) 0.2 Basophils # (Auto) 0.1 CBC Comment AUTO DIFF Differential Comment AUTO DIFF CONFIRMED Acanthocytes 1+ Date/Time Procedure Status Source Growth 11/12/16 09:30 Cryptosporidium Exam Received Stool Stool Pending 11/12/16 09:30 Giardia Antigen (BECKY) Received Stool Stool Pending 11/11/16 14:00 Urine Culture - Final Complete Urine Clean Catch 10-50,000 CFU/ML MIXED GRAM POSITIVE ... 11/10/16 21:31 Urine Culture Ordered Urine Clean Catch Pending Abdomen: Non-distended, Non-tender Extremities: Other (L hand IV infiltration site with ice, mininmal edema.) A/P Assessment and Plan Hiatal hernia, anemia, negative scopes, negative bleeding scan. Hgb 9.4 after two units pRBC. Discussed pill camera to look at small intestinal mucosa for bleeding source as outpatient, pt understands. Can follow up with Dr Ponce as outpatient. OK for DC from surgical standpoint. Kofi Horn MD Nov 13, 2016 10:23
--- NOTE | 2016-11-13 11:00 | HHI.GIFU ---
GI Follow-up Note Consult Follow-up Subjective: Patient laying in bed comfortably, feeling better, s/p 2 units of prbc -hb stable.No active bleeding .Feeling better .Wants to go home .she will hold asa/meloxicam for now Objective: PHYSICAL EXAMINATION: Vitals signs stable No fever Vital Signs Date Time Temp Pulse Resp B/P Pulse Ox O2 Delivery O2 Flow Rate FiO2 11/13/16 08:00 98.5 83 17 125/77 93 11/13/16 04:00 98.2 87 20 128/75 93 HEENT: Pupils round and reactive to light; normocephalic; atraumatic; no jaundice. Throat is clear. NECK: Neck is supple, no JVD, no lymphadenopathy. CHEST: Chest is clear to auscultation and percussion. CARDIAC: Regular rate and rhythm with no murmur gallop or rubs. ABDOMEN: Soft, nondistended, nontender; no hepatosplenomegaly; bowel sounds are present in all four quadrants. EXTREMITIES: No clubbing, cyanosis, or edema. SKIN: Normal; no rash; no jaundice. FILLING LAYER UP: No focal deficits; alert and oriented times three. Available Data (labs, X- Rays, Procedues) : Laboratory Tests Test 11/11/16 11/12/16 11/12/16 11/12/16 11:44 04:10 05:53 09:30 Hemoglobin 8.3 GM/DL 6.8 GM/DL Hematocrit 27.0 % 22.2 % White Blood Count 11.7 TH/MM3 Red Blood Count 2.95 MIL/MM3 Mean Corpuscular Volume 75.0 FL Mean Corpuscular Hemoglobin 23.2 PG Mean Corpuscular Hemoglobin 30.9 % Concent Red Cell Distribution Width 16.1 % Platelet Count 389 TH/MM3 Mean Platelet Volume 8.4 FL Neutrophils (%) (Auto) 55.4 % Lymphocytes (%) (Auto) 35.1 % Monocytes (%) (Auto) 7.0 % Eosinophils (%) (Auto) 1.7 % Basophils (%) (Auto) 0.8 % Neutrophils # (Auto) 6.5 TH/MM3 Lymphocytes # (Auto) 4.1 TH/MM3 Monocytes # (Auto) 0.8 TH/MM3 Eosinophils # (Auto) 0.2 TH/MM3 Basophils # (Auto) 0.1 TH/MM3 CBC Comment AUTO DIFF Differential Comment AUTO DIFF CONFIRMED Acanthocytes 1+ Keratocytes OCC Erythrocyte Sedimentation Rate 6 mm/hr Blood Type B NEGATIVE Crossmatch Leukocyte-Reduced Red Blood Cells Blood Bank Comment Stool C. difficile Toxin (PCR) NEGATIVE Stl C. difficile Toxin PRESUMPTIVE Epiderm 027 NEGATIVE Test 11/12/16 11/12/16 11/13/16 18:32 19:55 04:56 Urine Color YELLOW Urine Turbidity CLEAR Urine pH 5.5 Urine Specific [place] 1.012 Urine Protein NEG mg/dL Urine Glucose (UA) NEG mg/dL Urine Ketones NEG mg/dL Urine Occult Blood TRACE Urine Nitrite NEG Urine Bilirubin NEG Urine Urobilinogen LESS THAN 2.0 MG/DL Urine Leukocyte Esterase NEG Urine RBC 1 /hpf Urine WBC 3 /hpf Urine Squamous Epithelial 1 /hpf Cells Urine Mucus FEW /lpf Microscopic Urinalysis Comment CULT NOT INDICATED Hemoglobin 9.6 GM/DL 9.4 GM/DL Hematocrit 29.7 % 28.6 % Haptoglobin 96 MG/DL Iron Level 253 MCG/DL Ferritin 13 NG/ML Lactate Dehydrogenase 172 U/L Vitamin B12 Level 600 PG/ML Folate 17.6 NG/ML White Blood Count 11.3 TH/MM3 Red Blood Count 3.82 MIL/MM3 Mean Corpuscular Volume 74.9 FL Mean Corpuscular Hemoglobin 24.5 PG Mean Corpuscular Hemoglobin 32.8 % Concent Red Cell Distribution Width 16.7 % Platelet Count 404 TH/MM3 Mean Platelet Volume 8.2 FL Neutrophils (%) (Auto) 57.4 % Lymphocytes (%) (Auto) 28.6 % Monocytes (%) (Auto) 10.9 % Eosinophils (%) (Auto) 2.1 % Basophils (%) (Auto) 1.0 % Neutrophils # (Auto) 6.5 TH/MM3 Lymphocytes # (Auto) 3.2 TH/MM3 Monocytes # (Auto) 1.2 TH/MM3 Eosinophils # (Auto) 0.2 TH/MM3 Basophils # (Auto) 0.1 TH/MM3 CBC Comment AUTO DIFF Differential Comment AUTO DIFF CONFIRMED Acanthocytes 1+ ASSESSMENT/PLAN: anemia-gi bleeding, most likely from large hiatal hernia no active bleeding at this time -s/p PRBC Recommendations PPI avoid nsaids ok to dc home from gi point fu office 2 weeks capsule endoscopy op hematology eval op-anemia/lymph node fu surgery for possible hiatal hernia repair start iron supplementation It was a pleasure seeing Layne Tellez. Thank you for this consult. Entered by: Sandra Valverde MD Nov 13, 2016 11:00
--- NOTE | 2016-11-13 11:00 | HHI.PR ---
Subjective Remarks resting comfortably with no distress. denies any abdominal pain, nausea, vomiting or GI bleed. wants to go home today. Objective Vitals Vital Signs Date Time Temp Pulse Resp B/P Pulse Ox O2 Delivery O2 Flow Rate FiO2 11/13/16 08:00 98.5 83 17 125/77 93 11/13/16 04:00 98.2 87 20 128/75 93 11/13/16 00:00 99.5 91 20 116/78 93 11/12/16 20:23 81 11/12/16 20:00 98.5 84 20 121/81 94 11/12/16 16:00 97.6 78 18 119/76 95 11/12/16 15:05 98.5 107 18 137/77 97 11/12/16 14:58 98.3 106 15 130/73 96 11/12/16 12:00 97.9 83 17 123/68 94 I/O 11/12/16 11/12/16 11/12/16 11/13/16 11/13/16 11/13/16 07:00 15:00 23:00 07:00 15:00 23:00 Intake Total 240 ml 1579 ml 980 ml 1050 ml 1838 ml Output Total 450 ml 800 ml Balance 240 ml 1129 ml 980 ml 250 ml 1838 ml Intake Oral 240 ml 480 ml 120 ml 240 ml IV Total 804 ml 860 ml 810 ml 1838 ml Packed Cells 295 ml Output Urine Total 200 ml 800 ml Stool Total 250 ml # Voids 3 1 # Bowel Movements 2 2 Result Diagram: 11/13/16 0456 11/11/16 0445 Imaging Last Impressions GI Bleed Scan Nuclear Medicine 11/12/16 0000 Signed Impressions: Service Date/Time: Saturday, November 12, 2016 12:00 - CONCLUSION: No GI bleed demonstrated. Eric Matthews MD Abdomen/Pelvis CT 11/11/16 0000 Signed Impressions: Service Date/Time: Friday, November 11, 2016 14:26 - CONCLUSION: 1. 5 mm nonobstructing right renal calculus. 2. Moderate size paraesophageal hernia with the mid body of the stomach herniated into the lower chest. There is no evidence of obstruction. 3. Status post splenectomy. 4. Mildly prominent left inguinal lymph node measuring 2.2 x 1.9 cm. Kishan Mosley MD Objective Remarks GENERAL: This is a well-nourished, well-developed patient, in no apparent distress. CARDIOVASCULAR: Regular rate and regular rhythm without murmurs, gallops, or rubs. RESPIRATORY: Clear to auscultation. Breath sounds equal bilaterally. No wheezes , rales, or rhonchi. GASTROINTESTINAL: Abdomen soft, non-tender, nondistended. Normal, active bowel sounds MUSCULOSKELETAL: Extremities without clubbing, cyanosis, or edema. NEURO: Alert & Oriented x4 to person, place, time, situation. Moves all ext x4 Procedures EGD Medications and IVs Current Medications Ondansetron HCl (Zofran Inj) 4 mg ONCE ONCE IVP ; Start 11/10/16 at 21:15; Stop 11/10/16 at 21:16; Status DC IV Flush 2 ml 2 ml UNSCH PRN IVF FLUSH AFTER USING IV ACCESS; Start 11/10/16 at 21:15; Stop 11/10/16 at 23:20; Status DC Pantoprazole Sodium 80 mg/ Sodium Chloride 35 ml @ 420 mls/hr BOLUS ONCE IV Last administered on 11/10/16 22:47; Start 11/10/16 at 21:15; Stop 11/10/16 at 21:19; Status DC Pantoprazole Sodium 80 mg/ Sodium Chloride 100 ml @ 10 mls/hr CONTINUOUS IV Last administered on 11/10/16 23:42; Start 11/10/16 at 21:15; Stop 11/11/16 at 14:50; Status DC Sodium Chloride (NS 1000 ml Inj) 1,000 ml @ 100 mls/hr Q10H IV Last administered on 11/12/16 20:42; Start 11/10/16 at 23:12 IV Flush (NS Flush) 2 ml UNSCH PRN FLUSH FLUSH AFTER USING IV ACCESS; Start at 23:15 IV Flush (NS Flush) 2 ml BID FLUSH Last administered on 11/12/16 20:42; Start 11/11/16 at 09:00 Ondansetron HCl (Zofran Inj) 4 mg Q6H PRN IVP NAUSEA OR VOMITING; Start at 23:15 Bisacodyl (Dulcolax Supp) 10 mg DAILY PRN CA CONSTIPATION; Start 11/10/16 at 23 :15 Acetaminophen (Tylenol) 650 mg Q6H PRN PO FEVER/PAIN SCALE 1 TO 2; Start at 23:15 Acetaminophen/ Hydrocodone Bitart (Whately 5-325 Mg) 1 tab Q4H PRN PO PAIN SCALE 3 TO 5; Start 11/10/16 at 23:15 Morphine Sulfate 2 mg 2 mg Q3H PRN IV Pain 6-10; Start 11/10/16 at 23:15 Ceftriaxone Sodium/Sodium Chloride (Rocephin Inj/NS Inj) 100 ml @ 200 mls/hr Q24H IV Last administered on 11/13/16 00:19; Start 11/11/16 at 00:00 Propofol (Diprivan 200 Mg/20 ml Inj) 170 mg STK-MED ONCE IV ; Start 11/11/16 at 10:20; Stop 11/11/16 at 10:55; Status DC Diatrizoate Meglum/ Diatrizoate Sod ( Gastroview Liq) 18 ml ONCE ONCE PO Last administered on 11/11/16 11:55; Start 11/11/16 at 12:00; Stop 11/11/16 at 12:01; Status DC Pneumococcal Polyvalent Vaccine (Pneumovax-23 Inj) 25 mcg ONCE ONCE IM ; Start 11/12/16 at 10:00; Stop 11/12/16 at 10:01; Status DC Iohexol 90 ml 90 ml STK-MED ONCE IV Last administered on 11/11/16 14:44; Start 11/11/16 at 14:44; Stop 11/11/16 at 14:45; Status DC Pantoprazole Sodium/Sodium Chloride (Protonix Inj/NS Inj) 100 ml @ 10 mls/hr Q10H IV Last administered on 11/13/16 07:50; Start 11/11/16 at 16:00 A/P Assessment and Plan A/P 1. GI Bleed: acute onset of nausea/vomiting w/ hematemesis and melena continue PPI- s/p EGD with gastritis and Fundus superficial ulceration- CT of the abdomen with paraesophageal hernia bleeding scan with no GI bleed- GI and surgery f/u appreciated; cleared for discharge with outpatient f/u. continue PPI. 2.anemia- acute due to blood loss due to GI bleed received PRBC transfusion- with improved H/H. 3. Sepsis due to UT. continue with antibiotic. 4. DVT Prophylaxis: SCD's- Pharmacologic contraindications secondary to GI Bleed. Discharge Planning dc home with f/u by pcp, GI and surgery. see med list. d/w the patient and . Alonso Frank MD Nov 13, 2016 11:00
--- NOTE | 2016-11-13 11:02 | HHI.DS ---
Discharge Summary Admission Date Nov 10, 2016 at 23:06 Discharge Date: Nov 13, 2016 Admitting Diagnosis GI Bleed (1) GI (gastrointestinal bleed) ICD Code: K92.2 Diagnosis: Principal (2) Sepsis ICD Code: A41.9 Diagnosis: Principal (3) UTI (urinary tract infection) ICD Code: N39.0 Diagnosis: Principal Procedures EGD Brief History - From Admission Is a 71-year-old female with a PMH of HTN and GERD who was sent to the ER from [facility] secondary to hematemesis and melena x1 day. Pt reports nausea/vomiting since yesterday w/ no significant improvement. While at Urgent Care had recurrent episode of vomiting, noted to have bloody emesis and referred to ER. On ASA and Mobic at home. On arrival, BP 124/71, HR 104, O2 sat 94% on RA, Temp 100.2. WBC 14.8. Hgb 9.8, previously 12.6 on 05/16/12. BUN 41, GFR 73. Lactic Acid normal. LFTs normal. UA positive for UTI. Started on Protonix gtt in ER. GI consulted by ER physician. CBC/BMP: 11/13/16 0456 11/11/16 0445 Significant Findings Laboratory Tests Test 11/10/16 11/11/16 11/11/16 11/12/16 21:31 04:45 11:44 04:10 White Blood Count 14.8 TH/MM3 14.5 TH/MM3 11.7 TH/MM3 (4.0-11.0) (4.0-11.0) (4.0-11.0) Hemoglobin 9.8 GM/DL 8.1 GM/DL 8.3 GM/DL 6.8 GM/DL (11.6-15.3) (11.6-15.3) (11.6-15.3) (11.6-15.3) Hematocrit 31.9 % 26.0 % 27.0 % 22.2 % (35.0-46.0) (35.0-46.0) (35.0-46.0) (35.0-46.0) Mean Corpuscular Volume 74.7 FL 75.5 FL 75.0 FL (80.0-100.0) (80.0-100.0) (80.0-100.0) Mean Corpuscular Hemoglobin 22.9 PG 23.3 PG 23.2 PG (27.0-34.0) (27.0-34.0) (27.0-34.0) Mean Corpuscular Hemoglobin 30.6 % 30.9 % 30.9 % Concent (32.0-36.0) (32.0-36.0) (32.0-36.0) Platelet Count 511 TH/MM3 (150-450) Neutrophils (%) (Auto) 81.5 % 70.6 % (16.0-70.0) (16.0-70.0) Neutrophils # (Auto) 12.1 TH/MM3 10.2 TH/MM3 (1.8-7.7) (1.8-7.7) Platelet Estimate HIGH (NORMAL) Acanthocytes OCC (NORMAL) OCC (NORMAL) 1+ (NORMAL) Keratocytes OCC (NORMAL) OCC (NORMAL) OCC (NORMAL) Activated Partial 21.8 SEC Thromboplast Time (24.3-30.1) Urine Occult Blood SMALL (NEG) Urine Leukocyte Esterase MOD (NEG) Urine WBC 6 /hpf (0-5) Urine Bacteria RARE /hpf (NONE) Blood Urea Nitrogen 41 MG/DL (7-18) 34 MG/DL (7-18) Estimat Glomerular Filtration 73 ML/MIN (>89) 73 ML/MIN (>89) Rate Random Glucose 133 MG/DL (74-106) Calcium Level 8.0 MG/DL 7.6 MG/DL (8.5-10.1) (8.5-10.1) Aspartate Amino Transf 10 U/L (15-37) 7 U/L (15-37) (AST/SGOT) Albumin 3.0 GM/DL 2.7 GM/DL (3.4-5.0) (3.4-5.0) Red Blood Count 3.45 MIL/MM3 2.95 MIL/MM3 (4.00-5.30) (4.00-5.30) Monocytes (%) (Auto) 8.5 % (0.0-8.0) Monocytes # (Auto) 1.2 TH/MM3 (0-0.9) Spherocytes OCC (NORMAL) Ovalocytes 1+ (NORMAL) Chloride Level 112 MEQ/L (98-107) Total Protein 5.6 GM/DL (6.4-8.2) Test 11/12/16 11/12/16 11/13/16 18:32 19:55 04:56 Urine Occult Blood TRACE (NEG) Urine Mucus FEW /lpf (OCC) Hemoglobin 9.6 GM/DL 9.4 GM/DL (11.6-15.3) (11.6-15.3) Hematocrit 29.7 % 28.6 % (35.0-46.0) (35.0-46.0) Iron Level 253 MCG/DL (50-170) Folate 17.6 NG/ML (3.1-17.5) White Blood Count 11.3 TH/MM3 (4.0-11.0) Red Blood Count 3.82 MIL/MM3 (4.00-5.30) Mean Corpuscular Volume 74.9 FL (80.0-100.0) Mean Corpuscular Hemoglobin 24.5 PG (27.0-34.0) Monocytes (%) (Auto) 10.9 % (0.0-8.0) Monocytes # (Auto) 1.2 TH/MM3 (0-0.9) Acanthocytes 1+ (NORMAL) Imaging Last Impressions GI Bleed Scan Nuclear Medicine 11/12/16 0000 Signed Impressions: Service Date/Time: Saturday, November 12, 2016 12:00 - CONCLUSION: No GI bleed demonstrated. Eric Matthews MD Abdomen/Pelvis CT 11/11/16 0000 Signed Impressions: Service Date/Time: Friday, November 11, 2016 14:26 - CONCLUSION: 1. 5 mm nonobstructing right renal calculus. 2. Moderate size paraesophageal hernia with the mid body of the stomach herniated into the lower chest. There is no evidence of obstruction. 3. Status post splenectomy. 4. Mildly prominent left inguinal lymph node measuring 2.2 x 1.9 cm. Kishan Mosley MD PE at Discharge GENERAL: This is a well-nourished, well-developed patient, in no apparent distress. CARDIOVASCULAR: Regular rate and regular rhythm without murmurs, gallops, or rubs. RESPIRATORY: Clear to auscultation. Breath sounds equal bilaterally. No wheezes , rales, or rhonchi. GASTROINTESTINAL: Abdomen soft, non-tender, nondistended. Normal, active bowel sounds MUSCULOSKELETAL: Extremities without clubbing, cyanosis, or edema. NEURO: Alert & Oriented x4 to person, place, time, situation. Moves all ext x4 Hospital Course 1. GI Bleed: acute onset of nausea/vomiting w/ hematemesis and melena continue PPI- s/p EGD with gastritis and Fundus superficial ulceration- CT of the abdomen with paraesophageal hernia bleeding scan with no GI bleed- GI and surgery f/u appreciated; cleared for discharge with outpatient f/u. continue PPI. 2.anemia- acute due to blood loss due to GI bleed received PRBC transfusion- with improved H/H. 3. Sepsis due to UT. continue with antibiotic. 4. DVT Prophylaxis: SCD's- Pharmacologic contraindications secondary to GI Bleed. Pt Condition on Discharge: Good Discharge Disposition: Discharge Home Discharge Time: <= 30 minutes Discharge Instructions DIET: Follow Instructions for: Heart Healthy Diet Activities you can perform: Regular-No Restrictions Follow up Referrals: Gastroenterology PCP Follow-up Surgical New Medications: Ciprofloxacin (Cipro) 250 Mg Tab 250 MG PO BID Infection Days 3 Ref 0 TAB Continued Medications: Amlodipine (Norvasc) 2.5 Mg Tab 2.5 MG PO DAILY Blood Pressure Management #30 Ref 0 TAB Ascorbic Acid (Vitamin C) 100 Mg Chew 100 MG CHEW Nutritional Supplement Ref 0 TAB Calcium Carbonate-Cholecalciferol (Calcium 600 + D) 600-200 Mg-Unit Tab 1 TAB PO BID TAB Glucosamine (Glucosamine) 500 Mg Cap 500 MG PO DAILY Herbal Supplements Ref 0 CAP Omeprazole (Prilosec) 20 Mg Cap 20 MG PO DAILY #30 Ref 0 CAP Discontinued Medications: Aspirin (Aspirin) 81 Mg Tabdr 81 MG PO DAILY TAB Meloxicam (Meloxicam) 15 Mg Tab 15 MG PO DAILY Arthritis Pain #30 Ref 0 TAB Alonso Frank MD Nov 13, 2016 11:02
--- NOTE | 2016-11-13 11:02 | HHI.DCPOC ---
Discharge Care Plan Diagnosis: (1) GI (gastrointestinal bleed) Your Health Problems Are: Bleeding Tendency Goals to Promote Your Health * To prevent worsening of your condition and complications * To maintain your health at the optimal level Directions to Meet Your Goals Take your medications as prescribed Follow your dietary instruction Follow activity as directed Keep your appointments as scheduled Take your immunizations and boosters as scheduled If your symptoms worsen call your PCP, if no PCP go to Urgent Care Center or Emergency Room Smoking is Dangerous to Your Health. Avoid second hand smoke Call the 24-hour hour crisis hotline for domestic abuse at Alonso Frank MD Nov 13, 2016 11:01
[2016-11-13] MEDS ORDERED: CIPR250T52 PO (11:05)
[2016-11-16 03:56] LABS: IGA SERUM 125 mg/dL (81-463); TISSUE TRANSGLUTAMINASE AB IGG ND U/mL (())
[2016-11-16 13:56] LABS: ENDOMYSIAL AB TITER ND (<1:5); TISSUE TRANSGLUTAMINASE AB LESS THAN 1 U/mL (())
== END 2016-11-13 11:58 | disposition home or self-care (01) | DRG 377 ==
LOC: NEPE 18:14 → NEDA 23:06 → NEDH 11-11 03:14 → N07B 11-11 14:52
PROVIDERS: ADMIT Internal Medicine; ATTEND Internal Medicine
PROC: 0DB68ZX Excision of Stomach, Via Natural or Artificial Opening Endoscopic, Diagnostic (ICD-10-PCS; 2016-11-11)
PROC: 0DB98ZX Excision of Duodenum, Via Natural or Artificial Opening Endoscopic, Diagnostic (ICD-10-PCS; principal; 2016-11-11 10:08)
PROC: 30230N1 Transfusion of Nonautologous Red Blood Cells into Peripheral Vein, Open Approach (ICD-10-PCS; 2016-11-12)
DX: K92.2 Gastrointestinal hemorrhage, unspecified (principal); A41.9 Sepsis, unspecified organism; N39.0 Urinary tract infection, site not specified; K29.70 Gastritis, unspecified, without bleeding; K21.9 Gastro-esophageal reflux disease without esophagitis; R59.9 Enlarged lymph nodes, unspecified; K92.1 Melena; K44.9 Diaphragmatic hernia without obstruction or gangrene; I10 Essential (primary) hypertension; Z96.652 Presence of left artificial knee joint
CPT/HCPCS: 36430; 74177; 78278; 80053; 81001; 82607; 82728; 82746; 82784; 83010; 83516; 83540; 83605; 83615; 83690; 85014; 85018; 85025; 85610; 85652; 85730; 86850; 86900; 86901; 86920; 87086; 87328; 87329; 87493; 88305; 93005; 96365; A9560; C9113; J0696; J7030; P9016; Q9963; Q9967

== ENCOUNTER 2016-12-09 11:01 | Emergency (ER) | payer MEDICARE ==
[~2016-12-09] VITALS: Ht 167.6 cm; Wt 79.0 kg
[~2016-12-09 11:01] MED LIST changes: -CALC-197 PO; +CALC1TAB30 PO; +CIPR250T52 PO; -DOCU1CAP39 PO; +GLUC500C5 PO; -LOSA25TA31 PO; +NORV2.5T PO; -OCUTTAB; -OMEP20TA PO; -OMPR20CCR PO; -OXYC-360 PO; +PRIL20CA9 PO; -RIVA10 PO; -TAB-TAB PO; +VITA100C6 CHEW; -VITA500T10 PO; -VITA500T49 PO
[2016-12-09 11:07] VITALS: BP 122/81; PULSE 92; RESP 20; TEMP 97.5; O2SAT 99
[2016-12-09] MEDS ORDERED: DEXAMETHASONE SOD PHOS 4 MG/ML VIAL IM ONE (11:30)
[2016-12-09] MEDS ORDERED: traMADol HCL 50 MG TAB PO ONE (11:30)
--- NOTE | 2016-12-09 11:35 | PD ---
HPI Chief Complaint: Edema Time Seen by Provider: 11:20 Travel History International Travel<30 days: No Contact w/Intl Traveler<30days: No Traveled to known affect area: No History of Present Illness HPI 71-year-old female complains of left buttock pain and left leg pain. Patient states that the pain started 3 days ago. Patient states the pain is sharp shooting pain started posterior aspect the left hip and buttock area with radiation to left leg. Patient denies any injury to the hip on the leg area. Patient denies any fever chills. Patient denies any weakness or numbness of extremity. Patient denies any history of back pain or hip pain. Patient denies any history of DVT. Patient has history hypertension and GERD. Patient also had recent history of GI bleed secondary to NSAIDs. Patient was advised by her personal physician to go to ED to rule out blood clots in the leg. On a scale of 1-10 the pain is a 10. PFSH Past Medical History Arthritis: Yes Cancer: No Cardiovascular Problems: Yes Diabetes: No Endocrine: No Gastrointestinal Disorders: Yes GERD: Yes Glaucoma: No Genitourinary: No Hepatitis: No Hiatal Hernia: Yes Hypertension: Yes Immune Disorder: No Kidney Stones: Yes (mid ) Musculoskeletal: Yes Neurologic: No Psychiatric: No Reproductive: No Respiratory: No Immunizations Current: Yes Thyroid Disease: No Tetanus Vaccination: < 5 Years Influenza Vaccination: Yes Past Surgical History Abdominal Surgery: Yes (SPLENECTOMY 1990) Joint Replacement: Yes (LEFT KNEE) Pacemaker: No Other Surgery: Yes Social History Alcohol Use: No Tobacco Use: No Substance Use: No Allergies-Medications (Allergen,Severity, Reaction): Coded Allergies: Nabumetone (Unverified Allergy, Unknown, 12/09/16) Reported Meds & Prescriptions Reported Meds & Active Scripts Active Reported Norvasc (Amlodipine Besylate) 2.5 Mg Tab 2.5 Mg PO DAILY Glucosamine (Glucosamine Sulfate) 500 Mg Cap 500 Mg PO DAILY Calcium 600 + D (Calcium Carbonate-Cholecalciferol) 600-200 Mg-Unit Tab 1 Tab PO BID Vitamin C (Ascorbic Acid) 100 Mg Chew 100 Mg CHEW Prilosec (Omeprazole) 20 Mg Cap 20 Mg PO DAILY Review of Systems General / Constitutional: No: Fever Eyes: No: Visual changes HENT: No: Headaches Cardiovascular: No: Chest Pain or Discomfort Respiratory: No: Shortness of Breath Gastrointestinal: No: Abdominal Pain Genitourinary: No: Dysuria Musculoskeletal: Positive: Pain Skin: No Rash Neurologic: No: Weakness Psychiatric: No: Depression Endocrine: No: Polydipsia Hematologic/Lymphatic: No: Easy Bruising Physical Exam Narrative GENERAL: Well-nourished, well-developed patient. SKIN: Warm and dry. HEAD: Normocephalic. EYES: No scleral icterus. No injection or drainage. NECK: Supple, trachea midline. No JVD or lymphadenopathy. CARDIOVASCULAR: Regular rate and rhythm without murmurs, gallops, or rubs. RESPIRATORY: Breath sounds equal bilaterally. No accessory muscle use. GASTROINTESTINAL: Abdomen soft, non-tender, nondistended. MUSCULOSKELETAL: No cyanosis, or edema. Patient has moderate tenderness on palpation left sciatic notch area left buttock area posterior aspect left hip area. No redness no swelling no deformity of the left leg. Negative Homans sign. BACK: Patient has moderate tenderness and palpation left sciatic notch area, without obvious deformity. No CVA tenderness. Negative straight leg raising. Neurologic exam normal. Data Data Last Documented VS Vital Signs Date Time Temp Pulse Resp B/P Pulse Ox O2 Delivery O2 Flow Rate FiO2 12/09/16 11:07 97.5 92 20 122/81 99 Orders Dexamethasone Inj (Decadron Inj) (12/09/16 11:30) Tramadol (Ultram) (12/09/16 11:30) Us Leg Venous Doppler (12/09/16 11:28) Hip, Uni(Ap&Lat) W Ap Pelvis (12/09/16 11:29) MDM Medical Decision Making Medical Screen Exam Complete: Yes Emergency Medical Condition: Yes Interpretation(s) Last Impressions Hip and Pelvis X-Ray 12/09/16 1129 Signed Impressions: Service Date/Time: Friday, December 09, 2016 11:42 - CONCLUSION: No acute disease. Eric Cho MD Differential Diagnosis Differential diagnoses including sciatica, bursitis, tendinitis, DVT. Narrative Course 71-year-old female with severe pain started and left buttock area with radiation left leg. Ultram 50 mg by mouth given. Decadron 8 mg IM given. Diagnosis Primary Impression: Sciatica Qualified Code: M54.32 - Sciatica of left side Patient Instructions: General Instructions Additional Instructions: Take medication as needed for pain. Follow-up with orthopedist and personal physician. Return if worse. Med/Other Pt SpecificInfo: Prescription(s) given Scripts Tramadol (Ultram)50 Mg Tab50 Mg PO Q6H PRN (PAIN) #30 TAB Prov:Abiodun Thomas MD 12/09/16 Prednisone 20 Mg Tab20 Mg PO DAILY #7 TAB Prov:Abiodun Thomas MD 12/09/16 Disposition: 01 DISCHARGE HOME Condition: Stable Abiodun Thomas MD Dec 09, 2016 11:35
--- NOTE | 2016-12-09 12:18 | RADHPO ---
EXAM DATE/TIME: 12/09/2016 11:42 [facility] COMPARISON: No previous studies available for comparison. INDICATIONS : Left hip pain with no known injury MEDICAL HISTORY : Arthritis. SURGICAL HISTORY : None. ENCOUNTER: Initial ACUITY: 3 days PAIN SCORE: 10/10 LOCATION: Left posterior hip and leg FINDINGS: Examination of the left hip was performed with AP Pelvis. The primary and secondary trabecular patte rn of the femoral neck is intact. The hip joint is of normal width without significant sclerosis or bony hypertrophy. There are rounded calcific densities seen lateral to the inferior aspect of the gr eater trochanter likely related to hypertrophic change. The acetabulum is grossly intact. There is de generative change of the lower lumbar spine. CONCLUSION: No acute disease. Eric Cho MD on December 09, 2016 at 12:15 Board Certified Radiologist. This report was verified electronically.
--- NOTE | 2016-12-09 12:42 | RADHPO ---
EXAM DATE/TIME: 12/09/2016 12:23 [facility] COMPARISON: No previous studies available for comparison. INDICATIONS : Left leg pain. MEDICAL HISTORY : Hypertension. Gastroesophageal reflux disease. Arthritis. SURGICAL HISTORY : Splenectomy. Partial left knee replacement. ENCOUNTER: Initial ACUITY: 3 days PAIN SCORE: 4/10 LOCATION: Left leg. TECHNIQUE: Venous ultrasound of the leg was performed from the inguinal ligament to the proximal calf. Real-amelia e, color Doppler and spectral tracing, compression and augmentation techniques were used. FINDINGS: There is normal compressibility of the deep venous system from the inguinal region to the proximal ca lf. No echogenic clot is seen in the lumen of the common femoral, femoral, popliteal, and posterior tibial veins. There is a normal response of the venous system to proximal and distal augmentation an d respiration. CONCLUSION: No DVT. Eric Cho MD on December 09, 2016 at 12:40 Board Certified Radiologist. This report was verified electronically.
[2016-12-09 12:50] VITALS: BP 142/65; PULSE 80; RESP 16; O2SAT 97
[2016-12-09] MEDS ORDERED: PRED20 PO (12:53)
[2016-12-09] MEDS ORDERED: ULTR50TA5 PO (12:54)
== END 2016-12-09 13:00 | disposition home or self-care (01) ==
LOC: PHED 11:01
DX: M54.32 Sciatica, left side (principal); I10 Essential (primary) hypertension
CPT/HCPCS: 73502; 93971; 96372; 99284; J1100

== ENCOUNTER 2017-02-03 00:42 | Inpatient (IN) | payer MEDICARE ==
[~2017-02-03] VITALS: Ht 167.6 cm; Wt 76.3 kg
[2017-02-03] VITALS (17 sets, daily range): BP systolic 116–162; BP diastolic 68–96; PULSE 90–131; RESP 16–40; TEMP 98.2–98.9; O2SAT 91–96
[~2017-02-03 00:42] MED LIST changes: -CIPR250T52 PO; +PRED20 PO; +ULTR50TA5 PO
--- NOTE | 2017-02-03 02:40 | PD ---
HPI Chief Complaint: Flank/Kidney Pain Time Seen by Provider: 02:36 Travel History International Travel<30 days: No Contact w/Intl Traveler<30days: No Traveled to known affect area: No History of Present Illness HPI The patient is a 72-year-old female that complains of left flank pain and left leg pain. She had an iron infusion one month ago and developed swelling and pain in the left leg. This is getting slightly better. She developed pain in her left lateral ribs and this is what brought her in tonight. She is a patient of Dr. Ferrer. She denies any trauma. She states her family has a history of clots. The patient had a splenectomy years ago because "the spleen was eating my platelets". 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 The patient also has a history of losing about 2 L of blood through a GI bleed and September of this year. She was vomiting blood but the exact source of bleeding was never identified. PFSH Past Medical History Anemia: Yes (Iron deficiency ) Arthritis: Yes Cancer: No Cardiovascular Problems: Yes Diabetes: No Endocrine: No Gastrointestinal Disorders: Yes GERD: Yes Glaucoma: No Genitourinary: No Hepatitis: No Hiatal Hernia: Yes Hypertension: Yes Immune Disorder: No Implanted Vascular Access Dvce: Yes Kidney Stones: Yes (mid ) Musculoskeletal: Yes Neurologic: No Psychiatric: No Reproductive: No Respiratory: No Immunizations Current: Yes Thyroid Disease: No Tetanus Vaccination: Unknown Past Surgical History Abdominal Surgery: Yes (SPLENECTOMY 1990) Joint Replacement: Yes (LEFT KNEE) Pacemaker: No Other Surgery: Yes Social History Alcohol Use: No Tobacco Use: No Substance Use: No Allergies-Medications (Allergen,Severity, Reaction): Coded Allergies: Nabumetone (Unverified Allergy, Unknown, 02/03/17) Reported Meds & Prescriptions Reported Meds & Active Scripts Active Reported Norvasc (Amlodipine Besylate) 2.5 Mg Tab 2.5 Mg PO DAILY Glucosamine (Glucosamine Sulfate) 500 Mg Cap 500 Mg PO DAILY Calcium 600 + D (Calcium Carbonate-Cholecalciferol) 600-200 Mg-Unit Tab 1 Tab PO BID Vitamin C (Ascorbic Acid) 100 Mg Chew 100 Mg CHEW Prilosec (Omeprazole) 20 Mg Cap 20 Mg PO DAILY Review of Systems Except as stated in HPI: all other systems reviewed are Neg Physical Exam Narrative GENERAL: The patient is alert, oriented 3 in moderate apparent distress with her left leg pain. Her vital signs show heart rate of 131 with respirations 22 and oximetry 95%. SKIN: Focused skin assessment warm/dry. HEAD: Atraumatic. Normocephalic. EYES: Pupils equal and round. No scleral icterus. No injection or drainage. ENT: No nasal bleeding or discharge. Mucous membranes pink and moist. NECK: Trachea midline. No JVD. CARDIOVASCULAR: Regular rate and rhythm. No murmur appreciated. RESPIRATORY: No accessory muscle use. Clear to auscultation. Breath sounds equal bilaterally. GASTROINTESTINAL: Abdomen soft, non-tender, nondistended. Hepatic and splenic margins not palpable. MUSCULOSKELETAL: No obvious deformities. No clubbing. No cyanosis. No edema. NEUROLOGICAL: Awake and alert. No obvious cranial nerve deficits. Motor grossly within normal limits. Normal speech. PSYCHIATRIC: Appropriate mood and affect; insight and judgment normal. Data Data Last Documented VS Vital Signs Date Time Temp Pulse Resp B/P Pulse Ox O2 Delivery O2 Flow Rate FiO2 02/03/17 04:30 98.4 118 20 137/96 96 Nasal Cannula 2 Orders Us Leg Venous Doppler (02/03/17 02:36) Complete Blood Count With Diff (02/03/17 02:41) Comprehensive Metabolic Panel (02/03/17 02:41) B-Type Natriuretic Peptide (02/03/17 02:41) Act Partial Throm Time (Ptt) (02/03/17 02:41) Prothrombin Time / Inr (Pt) (02/03/17 02:41) Magnesium (Mg) (02/03/17 02:41) Urinalysis - C+S If Indicated (02/03/17 02:41) Iv Access Insert/Monitor (02/03/17 02:41) Ecg Monitoring (02/03/17 02:41) Oximetry (02/03/17 02:41) Oxygen Administration (02/03/17 02:41) Ct Pulmonary Angiogram (02/03/17 02:41) Sodium Chloride 0.9% Flush (Ns Flush) (02/03/17 02:45) Iohexol 350 Inj (Omnipaque 350 Inj) (02/03/17 04:05) Admit Order (Ed Use Only) (02/03/17 04:31) Labs Laboratory Tests Test 02/03/17 02/03/17 02:55 03:05 White Blood Count 14.7 TH/MM3 Red Blood Count 5.03 MIL/MM3 Hemoglobin 12.4 GM/DL Hematocrit 39.1 % Mean Corpuscular Volume 77.7 FL Mean Corpuscular Hemoglobin 24.5 PG Mean Corpuscular Hemoglobin 31.6 % Concent Red Cell Distribution Width 24.6 % Platelet Count 571 TH/MM3 Mean Platelet Volume 8.3 FL Neutrophils (%) (Auto) 81.3 % Lymphocytes (%) (Auto) 12.0 % Monocytes (%) (Auto) 5.8 % Eosinophils (%) (Auto) 0.2 % Basophils (%) (Auto) 0.7 % Neutrophils # (Auto) 11.9 TH/MM3 Lymphocytes # (Auto) 1.8 TH/MM3 Monocytes # (Auto) 0.9 TH/MM3 Eosinophils # (Auto) 0.0 TH/MM3 Basophils # (Auto) 0.1 TH/MM3 CBC Comment AUTO DIFF Differential Comment AUTO DIFF CONFIRMED Platelet Estimate HIGH Platelet Morphology Comment NORMAL Ovalocytes 1+ Prothrombin Time 11.3 SEC Prothromb Time International 1.0 RATIO Ratio Activated Partial 27.8 SEC Thromboplast Time Sodium Level 139 MEQ/L Potassium Level 3.8 MEQ/L Chloride Level 106 MEQ/L Carbon Dioxide Level 24.9 MEQ/L Anion Gap 8 MEQ/L Blood Urea Nitrogen 10 MG/DL Creatinine 0.64 MG/DL Estimat Glomerular Filtration 92 ML/MIN Rate Random Glucose 118 MG/DL Calcium Level 8.4 MG/DL Magnesium Level 2.3 MG/DL Total Bilirubin 0.5 MG/DL Aspartate Amino Transf 10 U/L (AST/SGOT) Alanine Aminotransferase 14 U/L (ALT/SGPT) Alkaline Phosphatase 106 U/L B-Type Natriuretic Peptide 13 PG/ML Total Protein 7.4 GM/DL Albumin 3.0 GM/DL Urine Color YELLOW Urine Turbidity CLEAR Urine pH 6.0 Urine Specific [place] 1.010 Urine Protein NEG mg/dL Urine Glucose (UA) NEG mg/dL Urine Ketones NEG mg/dL Urine Occult Blood SMALL Urine Nitrite NEG Urine Bilirubin NEG Urine Leukocyte Esterase NEG Urine RBC 4-9 /hpf Urine WBC 0-2 /hpf Urine Squamous Epithelial 0-5 /hpf Cells Urine Bacteria NONE /hpf Microscopic Urinalysis Comment CULT NOT INDICATED MDM Medical Decision Making Medical Screen Exam Complete: Yes Emergency Medical Condition: Yes Medical Record Reviewed: Yes Interpretation(s) The CT pulmonary angiogram shows evidence of pulmonary embolism involving branches of the left lower lung pulmonary artery. There are bibasilar infiltrates, left greater than right. Also noted is a large hiatal hernia the GE junction. The ultrasound of the left leg shows focal deep venous thrombosis in the posterior tibial vein in the calf. Superficial thrombosis is also noted in the greater saphenous vein. Differential Diagnosis Pneumonia, pulmonary embolus, DVT, cellulitis, lymphadenitis Narrative Course The patient likely had a DVT for the past month when he experienced his left leg swelling/pain. Her chest pain began tonight and this was likely because of the pulmonary embolus. The Pulmonary embolus is in the exact area where the chest pain is. Dr. Barrow but Dr. Sonido serrano was covering. Dr. Sonido serrano cannot take the patient's insurance ([employer]). For this reason we had to call the [facility] service, Dr. Hernández. Impressions: Pulmonary embolus, left leg DVT Diagnosis Primary Impression: Pulmonary embolus Additional Impression: DVT (deep venous thrombosis) Admitting Information Admitting Physician Requests: it Chintan Landeros MD February 03, 2017 02:40
[2017-02-03] MEDS ORDERED: SODIUM CHLORIDE 0.9% FLUSH 10 ML FLUSH IVF PRN (02:45)
[2017-02-03 03:09] LABS: AUTOMATED NEUTROPHIL # 11.9 TH/MM3 (1.8-7.7); BASOPHIL # 0.1 TH/MM3 (0-0.2); BASOPHIL % 0.7 % (0.0-2.0); EOSINOPHIL % 0.2 % (0.0-4.0); HEMATOCRIT 39.1 % (35.0-46.0); LYMPHOCYTE # 1.8 TH/MM3 (1.0-4.8); MEAN CELL VOLUME 77.7 FL (80.0-100.0); MEAN CORPUSCULAR HEMOGLOBIN 24.5 PG (27.0-34.0); MEAN CORPUSCULAR HGB CONC 31.6 % (32.0-36.0); MONO % 5.8 % (0.0-8.0); NEUT % 81.3 % (16.0-70.0); PLATELET COUNT 571 TH/MM3 (150-450); RED BLOOD COUNT 5.03 MIL/MM3 (4.00-5.30); RED CELL DISTRIBUTION WIDTH 24.6 % (11.6-17.2); WHITE BLOOD COUNT 14.7 TH/MM3 (4.0-11.0)
[2017-02-03 03:10] LABS: HEMO FLAGS AUTO DIFF
[2017-02-03 03:21] LABS: BLOOD, URINE SMALL (NEG); GLUCOSE,URINE NEG (NEG); KETONE, URINE NEG (NEG); NITRITE,URINE NEG (NEG)
[2017-02-03 03:22] LABS: CHLORIDE 106 MEQ/L (98-107); POTASSIUM 3.8 MEQ/L (3.5-5.1); SODIUM (NA) 139 MEQ/L (136-145)
[2017-02-03 03:23] LABS: OVALOCYTES 1+ (NORMAL); PLATELET ESTIMATE SMEAR HIGH (NORMAL)
[2017-02-03 03:24] LABS: PLATELET MORPHOLOGY NORMAL (NORMAL); SCAN/DIFF AUTO DIFF CONFIRMED
[2017-02-03 03:26] LABS: ANION GAP 8 MEQ/L (5-15); BICARBONATE 24.9 MEQ/L (21.0-32.0); BLOOD UREA NITROGEN 10 MG/DL (7-18); MAGNESIUM 2.3 MG/DL (1.5-2.5)
[2017-02-03 03:27] LABS: APTT (PATIENT) 27.8 SEC (24.3-30.1); PROTHROMBIN TIME - PATIENT 11.3 SEC (9.8-11.6)
[2017-02-03 03:29] LABS: ALT (GPT) 14 U/L (10-53); AST (GOT) 10 U/L (15-37); GLOMERULAR FILTRATION RATE 92 ML/MIN (>89)
[2017-02-03 03:30] LABS: TOTAL BILIRUBIN ADULT 0.5 MG/DL (0.2-1.0)
[2017-02-03 03:30] LABS: SQUAMOUS EPITHELIAL CELL URINE 0-5 /hpf (0-5); URINE COLOR YELLOW (YELLW/STRAW); WBC, URINE 0-2 /hpf (0-5)
[2017-02-03 03:31] LABS: COMMENT (UR) CULT NOT INDICATED; CULTURE IF INDICATED CULT NOT INDICATED
[2017-02-03 03:31] LABS: ALKALINE PHOSPHATASE 106 U/L (45-117)
--- NOTE | 2017-02-03 03:45 | RADHPO ---
EXAM DATE/TIME: 02/03/2017 08:10 [facility] COMPARISON: US LEG LEFT VENOUS DOPPLER, December 09, 2016, 12:23. INDICATIONS : Left leg pain and bruising. Shortness of breath. MEDICAL HISTORY : Hypertension. Gastroesophageal reflux disease. Arthritis. SURGICAL HISTORY : Splenectomy. Partial left knee. ENCOUNTER: Subsequent ACUITY: 1 day PAIN SCORE: 8/10 LOCATION: Left leg. TECHNIQUE: Venous ultrasound of the leg was performed from the inguinal ligament to the proximal calf. Real-amelia e, color Doppler and spectral tracing, compression and augmentation techniques were used. FINDINGS: There is normal compressibility of the deep venous system from the inguinal region to the proximal ca lf. No echogenic clot is seen in the lumen of the common femoral, femoral, popliteal. There is an oc clusive thrombus in the posterior tibial vein in the calf. There is also thrombus in the greater saph enous vein from the calf to the mid thigh. CONCLUSION 1. Focal deep venous thrombosis is in the posterior tibial vein in the calf. The deep venous system i s patent from the knee up to the pelvis. 2. Superficial thrombosis of the greater saphenous vein. Santiago Mccarty MD on February 03, 2017 at 3:39 Board Certified Radiologist. This report was verified electronically.
[2017-02-03] MEDS ORDERED: IOHEXOL 350 MG/ML 10 ML VIAL (for RAD DIAG) IV ONE (04:05)
--- NOTE | 2017-02-03 04:13 | RADHPO ---
EXAM DATE/TIME: 02/03/2017 03:42 [facility] COMPARISON: No previous studies available for comparison. INDICATIONS : Left sided chest pain. IV CONTRAST: 75 cc Omnipaque 350 (iohexol) IV RADIATION DOSE: 12.26 CTDIvol (mGy) MEDICAL HISTORY : Hernia, hiatal. Hypertension. Renal calculi. SURGICAL HISTORY : None. ENCOUNTER: Initial ACUITY: 1 day PAIN SCALE: 7/10 LOCATION: Left chest TECHNIQUE: Volumetric scanning of the chest was performed using a pulmonary embolism protocol MIP images were re constructed. Using automated exposure control and adjustment of the mA and/or kV according to patien t size, radiation dose was kept as low as reasonably achievable to obtain optimal diagnostic quality images. FINDINGS: PULMONARY ARTERIES: There are filling defects in some branches involving the left lower lung pulmonary artery characteris tic of pulmonary embolism. LUNGS: There are bibasilar infiltrates, left greater than right. PLEURAE: No pleural effusions. Pleural thickening of the right minor fissure MEDIASTINUM: There is good visualization of the great vessels of the middle mediastinum. No evidence of mediastin al or hilar adenopathy/mass. Prominent hiatal hernia the GE junction MUSCULOSKELETAL: Within normal limits for patient age. MISCELLANEOUS: The visualized upper abdominal organs demonstrate no acute abnormality. CONCLUSION: 1. There is evidence of pulmonary embolism involving branches of the left lower lung pulmonary artery . 2. Bibasilar infiltrates, left greater than right 3. Large hiatal hernia the GE junction Santiago Mccarty MD on February 03, 2017 at 4:08 Board Certified Radiologist. This report was verified electronically.
[2017-02-03] MEDS ORDERED: ENOXAPARIN SODIUM 80 MG/0.8 ML SYRINGE SQ ONE (05:00)
[2017-02-03] MEDS ORDERED: NALOXONE HCL 0.4 MG/ML AMP IV PRN (05:15)
[2017-02-03] MEDS ORDERED: SODIUM CHLORIDE 0.9% FLUSH 10 ML FLUSH IV FLUSH PRN (05:15)
[2017-02-03] MEDS ORDERED: oxyCODONE/ACETAMINOPHEN 5 MG/325 MG TAB PO ONE (05:45)
[2017-02-03] MEDS ORDERED: CHLORHEXIDINE GLUCONATE 2 % 1 PACK (2 CLOTHS)(extra cloths) TOPICAL PRN (06:45)
--- NOTE | 2017-02-03 08:20 | EKG ---
Date Performed: 02/03/2017 Time Performed: 04:43:28 PTAGE: 72 years EKG: Sinus tachycardia. Leftward axis Borderline ECG NO SIGNIFICANT CHANGE FROM PRIOR ELECTROCAR DIOGRAM. PREVIOUS TRACING : 11/10/2016 21.55 DOCTOR: Warren Rome Interpretating Date/Time 02/03/2017 08:18:55
[2017-02-03] MEDS: SODIUM CHLORIDE 0.9% FLUSH 10 ML FLUSH IV FLUSH SCH ×2 (09:00→23:03)
--- NOTE | 2017-02-03 09:04 | HHI.HP ---
[facility] Tomasz Mims MD Admission Diagnosis pulmonary embolism, deep vein thrombosis left leg Diagnoses: Chief Complaint: Left leg pain, shortness of breath Travel History International Travel<30 Days: No Contact w/Intl Traveler <30 Da: No Traveled to Known Affected Are: No History of Present Illness 72-year-old female with a medical history significant for hypertension, hiatal hernia, history of GI bleeding in October, iron deficiency anemia who presented with complaint of worsening left leg pain and shortness of breath. The patient reports she was admitted to the hospital back in October for GI bleed and anemia. Workup for GI bleeding was unrevealing except for a hiatal hernia. She has been following with general surgery for the hiatal hernia but hasn't had an intervention yet. She was seen by hematology and diagnosed with iron deficiency anemia. She had iron infusion about a month ago and reports she developed a lump and swelling in the left leg. Over the past couple of days she has been experiencing severe left lateral rib pain and pleuritic type chest pain which brought her to the emergency room. Workup in the emergency room revealed left leg DVT and pulmonary embolism on the left. She has been requiring oxygen. Currently still endorsing pleuritic type chest pain and mild shortness of breath. Review of Systems Constitutional: DENIES: Fever, Chills Respiratory: COMPLAINS OF: Shortness of breath, DENIES: Hemoptysis Cardiovascular: COMPLAINS OF: Chest pain Gastrointestinal: DENIES: Black stools, Bloody stools Musculoskeletal: DENIES: Joint pain Except as stated in HPI: all other systems reviewed are Neg Past Family Social History Past Medical History hypertension, hiatal hernia, history of GI bleeding in October, iron deficiency anemia Past Surgical History Left knee arthroplasty Right partial knee replacement. Reported Medications Reported Meds & Active Scripts Active Reported Norvasc (Amlodipine Besylate) 2.5 Mg Tab 2.5 Mg PO DAILY Glucosamine (Glucosamine Sulfate) 500 Mg Cap 500 Mg PO DAILY Calcium 600 + D (Calcium Carbonate-Cholecalciferol) 600-200 Mg-Unit Tab 1 Tab PO BID Vitamin C (Ascorbic Acid) 100 Mg Chew 100 Mg CHEW Prilosec (Omeprazole) 20 Mg Cap 20 Mg PO DAILY Allergies: Coded Allergies: Nabumetone (Unverified Allergy, Unknown, 02/03/17) Family History Both parents have history of lower extremity DVTs. Social History Patient denies alcohol, tobacco, or illicit drug use. Physical Exam Vital Signs Vital Signs Date Time Temp Pulse Resp B/P Pulse Ox O2 Delivery O2 Flow Rate FiO2 02/03/17 06:30 98.9 108 38 162/74 94 02/03/17 06:30 94 Nasal Cannula 3.00 02/03/17 05:30 110 18 146/86 96 Nasal Cannula 2 02/03/17 05:00 20 02/03/17 04:30 98.4 118 20 137/96 96 Nasal Cannula 2 02/03/17 03:30 120 20 154/86 95 Nasal Cannula 2 02/03/17 02:30 120 20 156/92 95 Nasal Cannula 2 02/03/17 02:00 110 20 140/77 95 Nasal Cannula 02/03/17 01:30 116 20 154/86 95 Nasal Cannula 2 02/03/17 01:10 98.2 122 20 130/93 95 Nasal Cannula 2 02/03/17 01:10 20 02/03/17 01:00 95 Nasal Cannula 2 02/03/17 01:00 95 Nasal Cannula 2 02/03/17 00:48 98.7 131 22 138/89 95 Physical Exam GENERAL: This is a well-nourished, well-developed patient, in no apparent distress. SKIN: No rashes, ecchymoses or lesions. Cool and dry. HEAD: Atraumatic. Normocephalic. No temporal or scalp tenderness. EYES: Pupils equal round and reactive. Extraocular motions intact. No scleral icterus. No injection or drainage. ENT: Nose without bleeding, purulent drainage or septal hematoma. Throat without erythema, tonsillar hypertrophy or exudate. Uvula midline. Airway patent. NECK: Trachea midline. No JVD or lymphadenopathy. Supple, nontender, no meningeal signs. CARDIOVASCULAR: Regular rate and rhythm without murmurs, gallops, or rubs. RESPIRATORY: Diminished breath sounds at the bases, otherwise clear to auscultation. GASTROINTESTINAL: Abdomen soft, non-tender, nondistended. No hepato-splenomegaly , or palpable masses. No guarding. MUSCULOSKELETAL: Left calf with some engorged superficial veins. There is some mild tenderness to palpation. Extremities without clubbing, cyanosis, or edema. No joint tenderness, effusion, or edema noted. No calf tenderness. Negative Homans sign bilaterally. NEUROLOGICAL: Awake and alert. Cranial nerves II through XII intact. Motor and sensory grossly within normal limits. Five out of 5 muscle strength in all muscle groups. Normal speech. Laboratory Laboratory Tests Test 02/03/17 02/03/17 02:55 03:05 White Blood Count 14.7 Red Blood Count 5.03 Hemoglobin 12.4 Hematocrit 39.1 Mean Corpuscular Volume 77.7 Mean Corpuscular Hemoglobin 24.5 Mean Corpuscular Hemoglobin 31.6 Concent Red Cell Distribution Width 24.6 Platelet Count 571 Mean Platelet Volume 8.3 Neutrophils (%) (Auto) 81.3 Lymphocytes (%) (Auto) 12.0 Monocytes (%) (Auto) 5.8 Eosinophils (%) (Auto) 0.2 Basophils (%) (Auto) 0.7 Neutrophils # (Auto) 11.9 Lymphocytes # (Auto) 1.8 Monocytes # (Auto) 0.9 Eosinophils # (Auto) 0.0 Basophils # (Auto) 0.1 CBC Comment AUTO DIFF Differential Comment AUTO DIFF CONFIRMED Platelet Estimate HIGH Platelet Morphology Comment NORMAL Ovalocytes 1+ Prothrombin Time 11.3 Prothromb Time International 1.0 Ratio Activated Partial 27.8 Thromboplast Time Sodium Level 139 Potassium Level 3.8 Chloride Level 106 Carbon Dioxide Level 24.9 Anion Gap 8 Blood Urea Nitrogen 10 Creatinine 0.64 Estimat Glomerular Filtration 92 Rate Random Glucose 118 Calcium Level 8.4 Magnesium Level 2.3 Total Bilirubin 0.5 Aspartate Amino Transf 10 (AST/SGOT) Alanine Aminotransferase 14 (ALT/SGPT) Alkaline Phosphatase 106 B-Type Natriuretic Peptide 13 Total Protein 7.4 Albumin 3.0 Urine Color YELLOW Urine Turbidity CLEAR Urine pH 6.0 Urine Specific [place] 1.010 Urine Protein NEG Urine Glucose (UA) NEG Urine Ketones NEG Urine Occult Blood SMALL Urine Nitrite NEG Urine Bilirubin NEG Urine Leukocyte Esterase NEG Urine RBC 4-9 Urine WBC 0-2 Urine Squamous Epithelial 0-5 Cells Urine Bacteria NONE Microscopic Urinalysis Comment CULT NOT INDICATED Result Diagram: 02/03/17 0255 02/03/17 [address] Angiography 02/03/17 0241 Signed Impressions: Service Date/Time: Friday, February 03, 2017 03:42 - CONCLUSION: 1. There is evidence of pulmonary embolism involving branches of the left lower lung pulmonary artery. 2. Bibasilar infiltrates, left greater than right 3. Large hiatal hernia the GE junction Santiago Mccarty MD Lower Extremity Ultrasound 02/03/176 Signed Impressions: Service Date/Time: Friday, February 03, 2017 08:10 - CONCLUSION: Assessment and Plan Problem List: (1) Pulmonary embolus ICD Code: I26.99 Status: Acute Plan: CT imaging personally reviewed. Pulmonary embolism of the left lower long. Patchy bibasilar area, infiltrate versus atelectasis. Large hiatal hernia at the GE junction per radiologist read. - Patient was given a dose of Lovenox in the emergency room. Will continue Lovenox 1 mg/kg every 12 hours. - Hematology consulted for assistance. Patient previously followed by Dr. Hand. - Supplemental oxygen. Incentive spirometry. (2) Hypoxemia ICD Code: R09.02 Status: Acute Plan: Secondary to above. Supplemental oxygen (3) DVT (deep venous thrombosis) ICD Code: I82.409 Status: Acute Plan: Treatment with Lovenox as above. (4) Iron deficiency anemia ICD Code: D50.9 Status: Chronic Plan: Patient appeared to have responded well to outpatient iron infusion. Her H&H have since normalized. Continue to monitor closely while on anticoagulant given her history of GI bleeding. (5) Hiatal hernia ICD Code: K44.9 Status: Chronic Plan: Continue PPI. Outpatient follow-up with general surgery as advised. (6) Lung infiltrate on CT ICD Code: R91.8 Status: Acute Plan: Monitor closely. May be developing pneumonia. (7) Pleuritic chest pain ICD Code: R07.81 Status: Acute Plan: Related to PE. Percocet for pain>5. Morphine PRN for breakthrough Physician Certification 2 Midnight Certification Type: Admission for Inpatient Services Order for Inpatient Services The services are ordered in accordance with Medicare regulations or non- Medicare payer requirements, as applicable. In the case of services not specified as inpatient-only, they are appropriately provided as inpatient services in accordance with the 2-midnight benchmark. Estimated LOS (days): 3 days is the estimated time the patient will need to remain in the hospital, assuming treatment plan goals are met and no additional complications. Post-Hospital Plan: Home Tay Noel MD February 03, 2017 09:04
[2017-02-03] MEDS: amLODIPine BESYLATE 5 MG TAB PO SCH (09:47)
[2017-02-03] MEDS: PANTOPRAZOLE SOD 20 MG DELAYED RELEASE TAB PO SCH (09:47)
[2017-02-03] MEDS ORDERED: MORPHINE SULFATE 4 MG/ML INJ IV PUSH PRN (12:30)
[2017-02-03] MEDS: oxyCODONE/ACETAMINOPHEN 5 MG/325 MG TAB PO PRN ×2 (15:27→23:04)
[2017-02-03] MEDS ORDERED: HEPARIN SODIUM - IV 10,000 UNITS/10 ML VIAL IV ONE (15:45)
[2017-02-03 15:53] LABS: TRANSFERRIN IRON PROFILE 173 MG/DL (200-360)
[2017-02-03 15:55] LABS: FERRITIN 508 NG/ML (8-252)
[2017-02-03] MEDS ORDERED: ONDANSETRON HCL 4 MG/2 ML VIAL IV PUSH PRN (16:00)
[2017-02-03 16:32] LABS: HEMATOCRIT 39.3 % (35.0-46.0); MEAN CELL VOLUME 78.8 FL (80.0-100.0); MEAN CORPUSCULAR HEMOGLOBIN 24.8 PG (27.0-34.0); MEAN CORPUSCULAR HGB CONC 31.5 % (32.0-36.0); PLATELET COUNT 576 TH/MM3 (150-450); RED BLOOD COUNT 4.98 MIL/MM3 (4.00-5.30); RED CELL DISTRIBUTION WIDTH 24.8 % (11.6-17.2); WHITE BLOOD COUNT 16.9 TH/MM3 (4.0-11.0)
[2017-02-03 16:39] LABS: APTT (PATIENT) 28.6 SEC (24.3-30.1); PROTHROMBIN TIME - PATIENT 11.5 SEC (9.8-11.6)
[2017-02-03 16:42] LABS: REVIEW FLAG FINAL
[2017-02-03] MEDS: HEPARIN-D5W INJ 250 ML IV SCH (17:04)
--- NOTE | 2017-02-03 17:09 | MB ---
cc: KASSY NOEL MD, RUBY ANNE E. M.D. DATE OF CONSULTATION 02/03/17 [address] Kassy Noel CHIEF COMPLAINT Dr. Noel requests a consultation for Mrs. Tellez regarding newly diagnosed left lower extremity deep vein thromboses and pulmonary embolism. HISTORY OF PRESENT ILLNESS Mrs. Tellez is a 71-year-old woman with history of ITP status post splenectomy. She has had baseline thrombocytosis. Her course is complicated by iron deficiency secondary to gastric ulcer. She also has paraesophageal hiatal hernia. She has a left inguinal adenopathy measuring 2.2 cm. She is seen in oncology clinic by Dr. Hand for the iron deficiency. Her hemoglobin was 7.5, MCV 78, ferritin of 12. She has had a recent GI bleed. She was treated with parenteral iron therapy and developed significant improvement in her symptoms of fatigue. However, two days after her infusion which lasted six hours, she developed the pain and discomfort in the left leg. The pain and discomfort in the left leg became progressively worse until the night prior to her admission when she developed pleuritic type pains. She came into the emergency room with flank pain and kidney pain. Imaging study showed pulmonary embolism involving both branches of the left lower lobe. There is bibasilar infiltrates with left greater than the right and large hiatal hernia in the GE junction. Lower extremity ultrasound shows focal deep venous thrombosis in the posterior tibial vein in the calf of the left. There is superficial thrombosis of the greater saphenous vein is what she felt palpable. She denies any overt bleeding. On admission, her hemoglobin was 12.4. Her platelet count is increased at 571. She has reactive thrombocytosis at baseline. Her white count is mildly elevated at 14.7. She has pleuritic type pain. She is quite uncomfortable. She was going to work until recently. PAST MEDICAL HISTORY 1. Anemia 2. Iron deficiency 3. Large hiatal hernia, 4. Gastroesophageal reflux, 5. Hypercholesterolemia, 6. Hypertension, 7. Sciatica 8. ITP status post splenectomy in remission. PAST SURGICAL HISTORY 1. Splenectomy 2. Right knee surgery 3. Left knee surgery. FAMILY HISTORY Mother at age 83 with a heart attack, myocardial infarction Father age 83 with prostate cancer. SOCIAL HISTORY She is and retired. She was never a smoker. She denies any alcohol or illicit drug use. ALLERGIES NO KNOWN DRUG ALLERGIES. MEDICATIONS Current, 1. Pneumococcal 2. Chlorhexidine. 3. Lovenox 4. Morphine p.r.n. 5. Protonix. 6. Norvasc. PHYSICAL EXAMINATION VITAL SIGNS: Temperature 98.2, heart rate 100, respiratory rate 30, saturation 91%. GENERAL: Ms. Tellez is a 72-year-old woman, uncomfortable, sitting with the head of the bed elevated. She has pleuritic like pains when she takes deep breaths. She is tachycardiac and mildly hypoxic, despite the Lovenox that she received earlier on today. HEENT: Her pupils are round, reactive to light and accommodation. Sclerae are nonicteric. Oropharynx is clear. NECK: Supple. LUNGS: Clear. CARDIOVASCULAR: Reveals a tachycardia. ABDOMEN: Benign LOWER EXTREMITIES: With prominent superficial thromboses of the left inner leg. LABORATORY DATA As described above. ASSESSMENT/PLAN Mrs. Tellez is a 72-year-old woman with multiple medical problems described above. Her history is significant for a recent GI bleeding and iron deficiency that was treated. After treatment with parenteral iron therapy, she appears to have recovery. However, she developed a pulmonary embolism. I suspect the pulmonary embolism is provoked with sitting in the treatment room for six hours. She admits to walking around. She has her own recliner at home. She has no other risk factor for her periods of immobility or long car ride, long plane ride. We discussed plans to initiate unfractionated heparin in light of her history of GI bleeding. I need an anticoagulant therapy that I can reverse. Furthermore, low-molecular weight heparin is not titratable. She received one dose and has not received any significant benefit or improvement from it. She is quite uncomfortable and her saturation is marginal. We will stop the low-molecular weight heparin and start unfractionated heparin. Risks and benefit of this was discussed with the nurse and patient. She was agreeable to the plan. We will monitor closely for any bleeding. So far, her hemoglobin on admission is normal. We will check her hemoglobin the following day. Her questions were answered to her satisfaction. We will see her in follow up along with the primary team. MD ELSA Kim /3:48 PM /4:48 PM
[2017-02-03] MEDS ORDERED: ENOXAPARIN SODIUM 80 MG/0.8 ML SYRINGE SQ SCH (18:00)
[2017-02-03] MEDS ORDERED: HEPARIN SODIUM - IV 10,000 UNITS/10 ML VIAL IV PRN (21:45)
[2017-02-03 22:59] LABS: APTT (PATIENT) 30.4 SEC (24.3-30.1)
[2017-02-04] VITALS (20 sets, daily range): BP systolic 95–120; BP diastolic 53–73; PULSE 76–114; RESP 13–34; TEMP 98–100; O2SAT 91–97
[2017-02-04] MEDS: CHLORHEXIDINE GLUCONATE 2 % 1 PACK (2 CLOTHS)(taper/protocol) TOPICAL SCH (04:00)
[2017-02-04 06:51] LABS: APTT (PATIENT) 107.7 SEC (24.3-30.1)
[2017-02-04] MEDS: SODIUM CHLORIDE 0.9% FLUSH 10 ML FLUSH IV FLUSH SCH ×2 (08:28→19:25)
[2017-02-04] MEDS: PILL SPLITTER OTHER PRN (08:28)
[2017-02-04] MEDS: PANTOPRAZOLE SOD 20 MG DELAYED RELEASE TAB PO SCH (08:28)
[2017-02-04] MEDS: amLODIPine BESYLATE 5 MG TAB PO SCH (08:29)
[2017-02-04 09:21] LABS: APTT (PATIENT) 42.2 SEC (24.3-30.1)
[2017-02-04 09:31] LABS: AUTOMATED NEUTROPHIL # 12.9 TH/MM3 (1.8-7.7); BASOPHIL # 0.1 TH/MM3 (0-0.2); BASOPHIL % 0.7 % (0.0-2.0); EOSINOPHIL % 0.2 % (0.0-4.0); HEMATOCRIT 36.5 % (35.0-46.0); LYMPH % 13.7 % (9.0-44.0); LYMPHOCYTE # 2.3 TH/MM3 (1.0-4.8); MEAN CORPUSCULAR HEMOGLOBIN 24.7 PG (27.0-34.0); MEAN CORPUSCULAR HGB CONC 30.9 % (32.0-36.0); NEUT % 78.4 % (16.0-70.0); PLATELET COUNT 522 TH/MM3 (150-450); RED BLOOD COUNT 4.57 MIL/MM3 (4.00-5.30); RED CELL DISTRIBUTION WIDTH 24.9 % (11.6-17.2); WHITE BLOOD COUNT 16.5 TH/MM3 (4.0-11.0)
[2017-02-04 09:36] LABS: HEMO FLAGS AUTO DIFF
[2017-02-04] MEDS ORDERED: PNEUMOCOCCAL POLYVALENT INJ 25 MCG/0.5 ML SYR IM ONE (10:00)
[2017-02-04 10:21] LABS: BICARBONATE 29.4 MEQ/L (21.0-32.0)
[2017-02-04 10:25] LABS: POTASSIUM 4.1 MEQ/L (3.5-5.1); SCAN/DIFF AUTO DIFF CONFIRMED
[2017-02-04] MEDS: HEPARIN-D5W INJ 250 ML IV SCH (10:59)
--- NOTE | 2017-02-04 11:05 | HHI.PR ---
Subjective Remarks Patient reports she is feeling much better today. She is breathing more comfortably. Left lower rib pain resolved. Patient inquired about when she can get out of the ICU. Objective Vitals Vital Signs Date Time Temp Pulse Resp B/P Pulse Ox O2 Delivery O2 Flow Rate FiO2 02/04/17 08:00 91 Nasal Cannula 3.00 02/04/17 06:00 88 29 104/70 93 02/04/17 06:00 88 02/04/17 05:00 76 19 97/59 96 02/04/17 04:00 98.0 78 21 110/70 97 02/04/17 04:00 78 02/04/17 03:01 90 20 97/59 92 02/04/17 02:14 96 25 107/63 92 02/04/17 02:00 80 02/04/17 01:00 90 22 104/62 95 02/04/17 00:00 104 02/04/17 00:00 98.5 104 30 118/73 92 02/03/17 22:00 90 24 118/71 95 02/03/17 22:00 90 02/03/17 20:20 94 Nasal Cannula 4.00 02/03/17 20:00 98.5 92 16 119/68 92 02/03/17 20:00 93 02/03/17 18:00 106 25 116/85 94 02/03/17 16:27 33 02/03/17 16:00 130 40 91 02/03/17 16:00 130 02/03/17 14:40 30 I/O 02/03/17 02/03/17 02/03/17 02/04/17 02/04/17 02/04/17 07:00 15:00 23:00 07:00 15:00 23:00 Intake Total 750 ml 192 ml 225 ml Output Total 500 ml 700 ml 350 ml Balance 250 ml -508 ml 225 ml -350 ml Intake Oral 750 ml 120 ml 120 ml IV Total 72 ml 105 ml Output Urine Total 500 ml 700 ml 350 ml # Bowel Movements 0 0 0 Result Diagram: 02/04/17 0545 02/04/17 [address] Angiography 02/03/17 0241 Signed Impressions: Service Date/Time: Friday, February 03, 2017 03:42 - CONCLUSION: 1. There is evidence of pulmonary embolism involving branches of the left lower lung pulmonary artery. 2. Bibasilar infiltrates, left greater than right 3. Large hiatal hernia the GE junction Santiago Mccarty MD Lower Extremity Ultrasound 02/03/17 0236 Signed Impressions: Service Date/Time: Friday, February 03, 2017 08:10 - CONCLUSION: Objective Remarks GENERAL: This is a well-nourished, well-developed patient, in no apparent distress. CARDIOVASCULAR: Normal rate and regular rhythm without murmurs, gallops, or rubs. RESPIRATORY: Good respiratory efforts. Diminished breath sounds at the bases otherwise clear to auscultation bilaterally. GASTROINTESTINAL: Abdomen soft, non-tender, non-distended. Normal active bowel sounds MUSCULOSKELETAL: Left calf with some engorged superficial veins. There is some mild tenderness to palpation. NEURO: Alert & Oriented x4 to person, place, time, situation. Moves all ext x4 PSYCH: Appropriate mood and affect. A/P Problem List: (1) Pulmonary embolus ICD Code: I26.99 Status: Acute Plan: Pulmonary embolism of the left lower lung. Patchy bibasilar area, infiltrate versus atelectasis. Large hiatal hernia at the GE junction per radiologist read. - Patient was given a dose of Lovenox in the emergency room. She has been seen by hematology and was transitioned to heparin drip - Appreciate hematology recommendations. (2) Hypoxemia ICD Code: R09.02 Status: Acute Plan: Secondary to above. Supplemental oxygen. Encourage patient to use incentive spirometer. (3) DVT (deep venous thrombosis) ICD Code: I82.409 Status: Acute Plan: On heparin as above. (4) Iron deficiency anemia ICD Code: D50.9 Status: Chronic Plan: Patient appeared to have responded well to outpatient iron infusion. Her H&H have since normalized. Continue to monitor closely while on anticoagulant given her history of GI bleeding. (5) Hiatal hernia ICD Code: K44.9 Status: Chronic Plan: Continue PPI. Outpatient follow-up with general surgery as advised. (6) Lung infiltrate on CT ICD Code: R91.8 Status: Acute Plan: Doubt pneumonia in the absence of any other symptoms. Maybe atelectasis. Monitor closely. Incentive spirometer. (7) Pleuritic chest pain ICD Code: R07.81 Status: Acute Plan: Related to PE. Much improved. Percocet for pain>5. Morphine PRN for breakthrough Tay Noel MD February 04, 2017 11:05
[2017-02-04 16:33] LABS: APTT (PATIENT) 42.4 SEC (24.3-30.1)
[2017-02-04] MEDS: ACETAMINOPHEN 325 MG TAB PO PRN (17:15)
[2017-02-04 22:43] LABS: APTT (PATIENT) 48.1 SEC (24.3-30.1)
[2017-02-05] VITALS (11 sets, daily range): BP systolic 109–128; BP diastolic 66–82; PULSE 84–108; RESP 21–36; TEMP 98.1–99.2; O2SAT 93–96
[2017-02-05] MEDS: CHLORHEXIDINE GLUCONATE 2 % 1 PACK (2 CLOTHS)(taper/protocol) TOPICAL SCH (04:00)
[2017-02-05 04:57] LABS: POTASSIUM 3.6 MEQ/L (3.5-5.1)
[2017-02-05 04:58] LABS: MEAN CELL VOLUME 79.6 FL (80.0-100.0); MEAN CORPUSCULAR HEMOGLOBIN 24.6 PG (27.0-34.0); PLATELET COUNT 586 TH/MM3 (150-450); RED BLOOD COUNT 4.64 MIL/MM3 (4.00-5.30); RED CELL DISTRIBUTION WIDTH 24.4 % (11.6-17.2); WHITE BLOOD COUNT 11.8 TH/MM3 (4.0-11.0)
[2017-02-05 05:00] LABS: APTT (PATIENT) 51.1 SEC (24.3-30.1); BICARBONATE 29.6 MEQ/L (21.0-32.0)
[2017-02-05 05:07] LABS: REVIEW FLAG FINAL
[2017-02-05] MEDS: HEPARIN-D5W INJ 250 ML IV SCH (05:47)
[2017-02-05] MEDS: ACETAMINOPHEN 325 MG TAB PO PRN (05:50)
[2017-02-05] MEDS: PANTOPRAZOLE SOD 20 MG DELAYED RELEASE TAB PO SCH (08:36)
[2017-02-05] MEDS: amLODIPine BESYLATE 5 MG TAB PO SCH (08:37)
[2017-02-05] MEDS: PILL SPLITTER OTHER PRN (08:37)
[2017-02-05] MEDS: SODIUM CHLORIDE 0.9% FLUSH 10 ML FLUSH IV FLUSH SCH ×2 (08:37→20:25)
--- NOTE | 2017-02-05 11:18 | HHI.PR ---
Subjective Remarks Patient reports she is feeling better. Breathing more comfortably. She is down to 1 L nasal cannula. No bleeding. No pain. Objective Vitals Vital Signs Date Time Temp Pulse Resp B/P Pulse Ox O2 Delivery O2 Flow Rate FiO2 02/05/17 11:03 94 Nasal Cannula 1.00 02/05/17 08:00 99.1 94 21 113/82 93 02/05/17 08:00 94 Nasal Cannula 1.00 02/05/17 08:00 85 02/05/17 07:00 93 Nasal Cannula 3.00 02/05/17 06:00 92 02/05/17 04:00 94 02/05/17 04:00 98.6 97 32 117/66 93 02/05/17 02:00 86 02/05/17 00:00 98.1 84 22 111/70 93 02/05/17 00:00 84 02/04/17 22:00 96 02/04/17 20:28 92 Nasal Cannula 3.00 02/04/17 20:00 112 02/04/17 20:00 99.0 103 22 110/60 92 02/04/17 19:00 Nasal Cannula 3.00 02/04/17 16:00 100.0 114 23 120/67 92 02/04/17 14:00 88 02/04/17 14:00 88 24 104/53 02/04/17 13:00 98 31 112/55 02/04/17 12:00 98.8 89 28 95/66 93 02/04/17 12:00 90 I/O 02/04/17 02/04/17 02/04/17 02/05/17 02/05/17 02/05/17 07:00 15:00 23:00 07:00 15:00 23:00 Intake Total 225 ml 672 ml Output Total 350 ml 500 ml 700 ml Balance 225 ml 322 ml -500 ml -700 ml Intake Oral 120 ml 600 ml IV Total 105 ml 72 ml Output Urine Total 350 ml 500 ml 700 ml # Voids 1 1 # Bowel Movements 0 0 Result Diagram: 02/05/17 04302/05/17 0430 Objective Remarks GENERAL: This is a well-nourished, well-developed patient, in no apparent distress. CARDIOVASCULAR: Normal rate and regular rhythm without murmurs, gallops, or rubs. RESPIRATORY: Good respiratory efforts. Diminished breath sounds at the bases otherwise clear to auscultation bilaterally. GASTROINTESTINAL: Abdomen soft, non-tender, non-distended. Normal active bowel sounds MUSCULOSKELETAL: Left calf with some engorged superficial veins. There is some mild tenderness to palpation. NEURO: Alert & Oriented x4 to person, place, time, situation. Moves all ext x4 PSYCH: Appropriate mood and affect. A/P Problem List: (1) Pulmonary embolus ICD Code: I26.99 Status: Acute Plan: Pulmonary embolism of the left lower lung. Patchy bibasilar area, infiltrate versus atelectasis. Large hiatal hernia at the GE junction per radiologist read. - Patient was given a dose of Lovenox in the emergency room. She has been seen by hematology and was transitioned to heparin drip - Appreciate hematology recommendations regarding when to transition to oral medications. - She is improving and requiring less oxygen. Encourage incentive spirometry. (2) Hypoxemia ICD Code: R09.02 Status: Acute Plan: Secondary to above. Supplemental oxygen. Encourage patient to use incentive spirometer. (3) DVT (deep venous thrombosis) ICD Code: I82.409 Status: Acute Plan: On heparin as above. (4) Iron deficiency anemia ICD Code: D50.9 Status: Chronic Plan: Patient appeared to have responded well to outpatient iron infusion. Her H&H have since normalized. Continue to monitor closely while on anticoagulant given her history of GI bleeding. (5) Hiatal hernia ICD Code: K44.9 Status: Chronic Plan: Continue PPI. Outpatient follow-up with general surgery as advised. (6) Lung infiltrate on CT ICD Code: R91.8 Status: Acute Plan: Doubt pneumonia in the absence of any other symptoms. Probably atelectasis. Monitor closely. Incentive spirometer. (7) Pleuritic chest pain ICD Code: R07.81 Status: Acute Plan: Related to PE. Resolved. Percocet for pain>5. Morphine PRN for breakthrough Tay Noel MD February 05, 2017 11:18
[2017-02-05] MEDS ORDERED: POLYETHYLENE GLYCOL 17 GM PKG PO PRN (15:00)
[2017-02-05] MEDS: DOCUSATE SODIUM 100 MG CAP PO SCH (20:25)
[2017-02-06] VITALS (8 sets, daily range): BP systolic 109–135; BP diastolic 62–79; PULSE 91–106; RESP 24–37; TEMP 98.3–99.2; O2SAT 91–96
[2017-02-06] MEDS: HEPARIN-D5W INJ 250 ML IV SCH (02:29)
[2017-02-06] MEDS: CHLORHEXIDINE GLUCONATE 2 % 1 PACK (2 CLOTHS)(taper/protocol) TOPICAL SCH (04:00)
[2017-02-06 05:47] LABS: HEMATOCRIT 34.8 % (35.0-46.0); MEAN CELL VOLUME 78.5 FL (80.0-100.0); MEAN CORPUSCULAR HEMOGLOBIN 24.8 PG (27.0-34.0); MEAN CORPUSCULAR HGB CONC 31.6 % (32.0-36.0); PLATELET COUNT 590 TH/MM3 (150-450); RED BLOOD COUNT 4.44 MIL/MM3 (4.00-5.30); RED CELL DISTRIBUTION WIDTH 24.5 % (11.6-17.2); WHITE BLOOD COUNT 11.6 TH/MM3 (4.0-11.0)
[2017-02-06 05:50] LABS: REVIEW FLAG FINAL
[2017-02-06] MEDS: PILL SPLITTER OTHER PRN (07:50)
[2017-02-06] MEDS: SODIUM CHLORIDE 0.9% FLUSH 10 ML FLUSH IV FLUSH SCH ×2 (07:50→21:07)
[2017-02-06] MEDS: DOCUSATE SODIUM 100 MG CAP PO SCH ×2 (07:51→21:06)
[2017-02-06] MEDS: amLODIPine BESYLATE 5 MG TAB PO SCH (07:51)
[2017-02-06] MEDS: PANTOPRAZOLE SOD 20 MG DELAYED RELEASE TAB PO SCH (07:51)
--- NOTE | 2017-02-06 11:31 | HHI.PR ---
Subjective Remarks Patient reports she is feeling better. See is sitting up in the chair today. Still using about 3 L on nasal cannula. She denies chest pain. Objective Vitals Vital Signs Date Time Temp Pulse Resp B/P Pulse Ox O2 Delivery O2 Flow Rate FiO2 02/06/17 08:00 98.4 92 32 109/63 91 02/06/17 08:00 91 02/06/17 07:31 95 Nasal Cannula 2.00 02/06/17 07:00 93 Nasal Cannula 3.00 02/06/17 04:00 98.8 98 30 109/62 93 02/06/17 00:00 98.6 105 24 135/79 92 02/06/17 00:00 100 02/05/17 22:00 102 02/05/17 20:00 98.7 108 30 128/66 93 02/05/17 20:00 108 02/05/17 19:55 96 Nasal Cannula 2.00 02/05/17 19:00 Nasal Cannula 3.00 02/05/17 16:00 99.2 96 36 123/68 93 02/05/17 12:00 98.6 96 25 109/69 94 I/O 02/05/17 02/05/17 02/05/17 02/06/17 02/06/17 02/06/17 07:00 15:00 23:00 07:00 15:00 23:00 Intake Total 1006 ml 809 ml 334 ml Output Total 700 ml 300 ml 600 ml Balance -700 ml 1006 ml 509 ml -266 ml Intake Oral 720 ml 720 ml 240 ml IV Total 286 ml 89 ml 94 ml Output Urine Total 700 ml 300 ml 600 ml # Voids 2 # Bowel Movements 0 Result Diagram: 02/06/17 0515 02/05/17 0430 Objective Remarks GENERAL: This is a well-nourished, well-developed patient, in no apparent distress. CARDIOVASCULAR: Normal rate and regular rhythm without murmurs, gallops, or rubs. RESPIRATORY: Good respiratory efforts. Diminished breath sounds at the bases otherwise clear to auscultation bilaterally. GASTROINTESTINAL: Abdomen soft, non-tender, non-distended. Normal active bowel sounds MUSCULOSKELETAL: Left calf with some engorged superficial veins. Minimal tenderness to palpation. NEURO: Alert & Oriented x4 to person, place, time, situation. Moves all ext x4 PSYCH: Appropriate mood and affect. A/P Problem List: (1) Pulmonary embolus ICD Code: I26.99 Status: Acute Plan: Pulmonary embolism of the left lower lung. Patchy bibasilar area, infiltrate versus atelectasis. Large hiatal hernia at the GE junction per radiologist read. - Patient was given a dose of Lovenox in the emergency room. She has been seen by hematology and was transitioned to heparin drip - Appreciate hematology recommendations regarding when to transition to oral medications. - She is improving. Encourage incentive spirometry. Discussed with RN to start with ambulation. (2) Hypoxemia ICD Code: R09.02 Status: Acute Plan: Secondary to above. Supplemental oxygen. Encourage patient to use incentive spirometer. (3) DVT (deep venous thrombosis) ICD Code: I82.409 Status: Acute Plan: On heparin as above. (4) Iron deficiency anemia ICD Code: D50.9 Status: Chronic Plan: Patient appeared to have responded well to outpatient iron infusion. Her H&H have since normalized. Continue to monitor closely while on anticoagulant given her history of GI bleeding. (5) Hiatal hernia ICD Code: K44.9 Status: Chronic Plan: Continue PPI. Outpatient follow-up with general surgery as advised. (6) Lung infiltrate on CT ICD Code: R91.8 Status: Acute Plan: Doubt pneumonia in the absence of any other symptoms. Probably atelectasis. Monitor closely. Incentive spirometer. (7) Pleuritic chest pain ICD Code: R07.81 Status: Acute Plan: Related to PE. Resolved. Percocet for pain>5. Morphine PRN for breakthrough Tay Noel MD February 06, 2017 11:31
[2017-02-06] MEDS ORDERED: WARFARIN SOD 5 MG TAB PO SCH (18:15)
--- NOTE | 2017-02-06 18:15 | PD.ONC.PN ---
Subjective Subjective Remarks Pt has a list of questions which we discussed. Feeling better, pleuritic chest pain resolved. No overt bleeding. Objective Data Date Time Temp Pulse Resp B/P Pulse Ox O2 Delivery O2 Flow Rate FiO2 02/06/17 16:00 98.7 98 26 115/67 92 02/06/17 12:00 98.3 98 30 116/73 93 02/06/17 08:00 98.4 92 32 109/63 91 02/06/17 08:00 91 02/06/17 07:31 95 Nasal Cannula 2.00 02/06/17 07:00 93 Nasal Cannula 3.00 02/06/17 04:00 98.8 98 30 109/62 93 02/06/17 00:00 98.6 105 24 135/79 92 02/06/17 00:00 100 02/05/17 22:00 102 02/05/17 20:00 98.7 108 30 128/66 93 02/05/17 20:00 108 02/05/17 19:55 96 Nasal Cannula 2.00 02/05/17 19:00 Nasal Cannula 3.00 02/06/17 02/06/17 02/06/17 07:00 15:00 23:00 Intake Total 334 ml 697 ml Output Total 600 ml Balance -266 ml 697 ml Result Diagram: 02/06/17 0515 02/05/17 0430 Laboratory Results Laboratory Tests Test 02/06/17 05:15 White Blood Count 11.6 TH/MM3 Red Blood Count 4.44 MIL/MM3 Hemoglobin 11.0 GM/DL Hematocrit 34.8 % Mean Corpuscular Volume 78.5 FL Mean Corpuscular Hemoglobin 24.8 PG Mean Corpuscular Hemoglobin 31.6 % Concent Red Cell Distribution Width 24.5 % Platelet Count 590 TH/MM3 Mean Platelet Volume 8.6 FL Activated Partial 49.0 SEC Thromboplast Time Culture Results Microbiology Date/Time Procedure Status Source Growth 02/06/17 08:30 Stool Occult Blood (BECKY) - Final Complete Stool Stool HEMOCCULT NEGATIVE Administered Medications Medications (Trade) Dose Ordered Sig/Masood Route PRN Reason Start Time Stop Time Status Last Admin Dose Admin Sodium Chloride (NS Flush) 2 ml BID IV FLUSH 02/03/17 09:00 02/06/17 07:50 Miscellaneous Information Patient in critical care unit? Ass... [id number] .XX 02/03/17 06:45 02/03/17 06:45 Chlorhexidine Gluconate (Chlorhexidine 2% Cloth) 3 pack DAILY@04 TOPICAL 02/04/17 04:00 02/08/17 04:01 02/06/17 04:00 Amlodipine Besylate (Norvasc) 2.5 mg DAILY PO 02/03/17 09:00 02/06/17 07:51 Pantoprazole Sodium (Protonix) 20 mg DAILY PO 02/03/17 09:30 02/06/17 07:51 Oxycodone/ Acetaminophen (Percocet 5-325 Mg) 1 tab Q4H PRN PO PAIN GREATER THAN 5 02/03/17 12:30 02/03/17 23:04 Morphine Sulfate (Morphine Inj) 2 mg Q3H PRN IV PUSH BREAKTHROUGH PAIN 02/03/17 12:30 02/03/17 14:35 Heparin Sodium (Porcine) 2500 units 2,500 units UNSCH PRN IV APTT 25 TO 39 02/03/17 21:45 02/03/17 23:12 Heparin Sodium/ Dextrose (Heparin-D5W Inj) 250 ml @ 0 mls/hr TITRATE IV 02/03/17 15:45 02/06/17 02:29 Ondansetron HCl (Zofran Inj) 4 mg Q6HR PRN IV PUSH nausea 02/03/17 16:00 02/03/17 17:05 Miscellaneous (Pill Splitter) 1 ea UNSCH PRN OTHER SEE LABEL COMMENTS 02/04/17 08:30 02/06/17 07:50 Acetaminophen (Tylenol) 650 mg Q6H PRN PO HEADACHE 02/04/17 17:00 02/05/17 05:50 Docusate Sodium (Colace) 100 mg BID PO 02/05/17 21:00 02/06/17 07:51 Objective Remarks GENERAL: Well-nourished, well-developed patient. SKIN: Warm and dry. HEAD: Normocephalic. EYES: No scleral icterus. No injection or drainage. NECK: Supple, trachea midline. No JVD or lymphadenopathy. LYMPHATIC: No adenopathy. CARDIOVASCULAR: Regular rate and rhythm without murmurs. RESPIRATORY: Breath sounds equal bilaterally. No accessory muscle use. GASTROINTESTINAL: Abdomen soft, non-tender, nondistended. EXTREMITIES: No cyanosis, L inner lower leg cord, less prominent. MUSCULOSKELETAL: Adequate muscle tone. NEUROLOGICAL: No obvious focal deficit. Awake, alert, and oriented x3. PSYCHIATRIC: Appropriate mood and affect; insight and judgment normal. Assessment/Plan Problem List: (1) Hiatal hernia Status: Chronic Plan: Agree with Dr. Ponce, defer surgery for 6 months. Pt need to continue anticoagulation. (2) DVT (deep venous thrombosis) Status: Acute Plan: PE/DVT. L leg swelling and cord improve. Notes significant family h/o VTE. Breathing improve. Discussed options for anticoagulation, NOAC vs. Coumadin. Decided against NOAC due to h/o bleed and NOAC have no reversal agent. Discussed need to bridge to therapeutic INR. Consult w/ case management for Lovenox out pt. Start pt instruction for Lovenox until INR 2-3, pt was giving her cat insulin believe she can try to give self shot. (3) Iron deficiency anemia Status: Chronic Plan: Hgb trending down, platelet count elevated- reactive thrombocytosis. Although iron seem to be replaced with calculated dose iron administered, we discussed possibility continued iron loss due to hiatal hernia. Continue to monitor for bleeding. Assessment 72 y/o woman with h/o GI bleed and subsequent iron deficiency admitted for DVT/ PE temporally related to sitting for iron treatment over several hours. Plan 1. Start Lovenox 2 hours after Heparin drip finish. 2. Coumadin 5mg tonight. 3. Patient teaching on Coumadin 4. Coordinate fu at [facility] or for pt/inr and additional iron this week 5. Case management consult for Lovenox. 6. OK transfer out of ICU from heme/onc perspective Charlene Patel MD February 06, 2017 18:15
[2017-02-06] MEDS ORDERED: DO NOT ADM ANY ANTICOAGULANT DRUGS OTHER PRN (18:45)
[2017-02-06] MEDS: ENOXAPARIN SODIUM 60 MG/0.6 ML SYRINGE SQ SCH (21:07)
[2017-02-07] VITALS: BP 133/78; PULSE 102; RESP 25; TEMP 98.8; O2SAT 94
[2017-02-07] MEDS: CHLORHEXIDINE GLUCONATE 2 % 1 PACK (2 CLOTHS)(taper/protocol) TOPICAL SCH (03:18)
[2017-02-07 04:00] VITALS: BP 119/72; PULSE 92; RESP 24; TEMP 98.5; O2SAT 93
[2017-02-07 05:11] LABS: HEMATOCRIT 37.5 % (35.0-46.0); MEAN CELL VOLUME 78.9 FL (80.0-100.0); MEAN CORPUSCULAR HEMOGLOBIN 24.3 PG (27.0-34.0); MEAN CORPUSCULAR HGB CONC 30.8 % (32.0-36.0); PLATELET COUNT 636 TH/MM3 (150-450); RED BLOOD COUNT 4.75 MIL/MM3 (4.00-5.30); RED CELL DISTRIBUTION WIDTH 24.8 % (11.6-17.2)
[2017-02-07 05:12] LABS: REVIEW FLAG FINAL
[2017-02-07 07:30] VITALS: O2SAT 95
[2017-02-07 08:00] VITALS: BP 119/71; PULSE 100; PULSE 90; RESP 27; TEMP 98.9; O2SAT 93
[2017-02-07] MEDS: PANTOPRAZOLE SOD 20 MG DELAYED RELEASE TAB PO SCH (08:04)
[2017-02-07] MEDS: ENOXAPARIN SODIUM 60 MG/0.6 ML SYRINGE SQ SCH (08:04)
[2017-02-07] MEDS: amLODIPine BESYLATE 5 MG TAB PO SCH (08:04)
[2017-02-07] MEDS: DOCUSATE SODIUM 100 MG CAP PO SCH (08:05)
[2017-02-07] MEDS: SODIUM CHLORIDE 0.9% FLUSH 10 ML FLUSH IV FLUSH SCH (08:05)
[2017-02-07 10:36] VITALS: O2SAT 93
[2017-02-07 11:26] LABS: INTERNATIONAL NORMALIZED RATIO 1.1 RATIO; PROTHROMBIN TIME - PATIENT 12.7 SEC (9.8-11.6)
[2017-02-07] MEDS ORDERED: ENOX60P SQ (11:49)
[2017-02-07] MEDS ORDERED: COUM5TAB PO (11:49)
--- NOTE | 2017-02-07 11:51 | HHI.DCPOC ---
Discharge Care Plan Diagnosis: (1) Pulmonary embolus (2) DVT (deep venous thrombosis) (3) Iron deficiency anemia (4) Hypoxemia (5) Hiatal hernia Goals to Promote Your Health * To prevent worsening of your condition and complications * To maintain your health at the optimal level Directions to Meet Your Goals Take your medications as prescribed Follow your dietary instruction Follow activity as directed Keep your appointments as scheduled Take your immunizations and boosters as scheduled If your symptoms worsen call your PCP, if no PCP go to Urgent Care Center or Emergency Room Smoking is Dangerous to Your Health. Avoid second hand smoke Call the 24-hour hour crisis hotline for domestic abuse at Tay Noel MD February 07, 2017 11:51
--- NOTE | 2017-02-07 11:51 | HHI.DS ---
Discharge Summary Admission Date February 03, 2017 at 04:36 Discharge Date: February 07, 2017 Admitting Diagnosis pulmonary embolism, deep vein thrombosis left leg (1) Pulmonary embolus ICD Code: I26.99 (2) Hypoxemia ICD Code: R09.02 (3) DVT (deep venous thrombosis) ICD Code: I82.409 (4) Iron deficiency anemia ICD Code: D50.9 (5) Hiatal hernia ICD Code: K44.9 (6) Lung infiltrate on CT ICD Code: R91.8 (7) Pleuritic chest pain ICD Code: R07.81 Procedures None Brief History - From Admission History from admission: 72-year-old female with a medical history significant for hypertension, hiatal hernia, history of GI bleeding in October, iron deficiency anemia who presented with complaint of worsening left leg pain and shortness of breath. The patient reports she was admitted to the hospital back in October for GI bleed and anemia. Workup for GI bleeding was unrevealing except for a hiatal hernia. She has been following with general surgery for the hiatal hernia but hasn't had an intervention yet. She was seen by hematology and diagnosed with iron deficiency anemia. She had iron infusion about a month ago and reports she developed a lump and swelling in the left leg. Over the past couple of days she has been experiencing severe left lateral rib pain and pleuritic type chest pain which brought her to the emergency room. Workup in the emergency room revealed left leg DVT and pulmonary embolism on the left. She has been requiring oxygen. Currently still endorsing pleuritic type chest pain and mild shortness of breath. CBC/BMP: 02/07/17 0500 02/05/17 0430 Significant Findings Laboratory Tests Test 02/04/17 02/04/17 02/05/17 02/06/17 16:13 22:20 04:30 05:15 Activated Partial 42.4 SEC 48.1 SEC 51.1 SEC 49.0 SEC Thromboplast Time (24.3-30.1) (24.3-30.1) (24.3-30.1) (24.3-30.1) White Blood Count 11.8 TH/MM3 11.6 TH/MM3 (4.0-11.0) (4.0-11.0) Hemoglobin 11.4 GM/DL 11.0 GM/DL (11.6-15.3) (11.6-15.3) Mean Corpuscular Volume 79.6 FL 78.5 FL (80.0-100.0) (80.0-100.0) Mean Corpuscular Hemoglobin 24.6 PG 24.8 PG (27.0-34.0) (27.0-34.0) Mean Corpuscular Hemoglobin 31.0 % 31.6 % Concent (32.0-36.0) (32.0-36.0) Red Cell Distribution Width 24.4 % 24.5 % (11.6-17.2) (11.6-17.2) Platelet Count 586 TH/MM3 590 TH/MM3 (150-450) (150-450) Hematocrit 34.8 % (35.0-46.0) Test 02/07/17 02/07/17 05:00 10:45 White Blood Count 12.0 TH/MM3 (4.0-11.0) Mean Corpuscular Volume 78.9 FL (80.0-100.0) Mean Corpuscular Hemoglobin 24.3 PG (27.0-34.0) Mean Corpuscular Hemoglobin 30.8 % Concent (32.0-36.0) Red Cell Distribution Width 24.8 % (11.6-17.2) Platelet Count 636 TH/MM3 (150-450) Prothrombin Time 12.7 SEC (9.8-11.6) Imaging Last Impressions CT Angiography 02/03/17 024 Signed Impressions: Service Date/Time: Friday, February 03, 2017 03:42 - CONCLUSION: 1. There is evidence of pulmonary embolism involving branches of the left lower lung pulmonary artery. 2. Bibasilar infiltrates, left greater than right 3. Large hiatal hernia the GE junction Santiago Mccarty MD Lower Extremity Ultrasound 02/03/17 318 Signed Impressions: Service Date/Time: Friday, February 03, 2017 08:10 - CONCLUSION: PE at Discharge GENERAL: This is a well-nourished, well-developed patient, in no apparent distress. CARDIOVASCULAR: Normal rate and regular rhythm without murmurs, gallops, or rubs. RESPIRATORY: Good respiratory efforts. Diminished breath sounds at the bases otherwise clear to auscultation bilaterally. GASTROINTESTINAL: Abdomen soft, non-tender, non-distended. Normal active bowel sounds MUSCULOSKELETAL: Left calf with some engorged superficial veins. Minimal tenderness to palpation. NEURO: Alert & Oriented x4 to person, place, time, situation. Moves all ext x4 PSYCH: Appropriate mood and affect. Pt update on day of discharge Patient reports she is feeling great. She is still requiring oxygen. We discussed discharge planning at length. She feels comfortable with doing Lovenox shots. We discussed the process of bridging from Lovenox to Coumadin at length. She understand the need to follow-up and get the appropriate blood work. Hospital Course 72-year-old female admitted with DVT and pulmonary embolism. Evaluation and treatment course detailed below: Pulmonary embolus - Pulmonary embolism of the left lower lung. Patchy bibasilar area, infiltrate versus atelectasis. Large hiatal hernia at the GE junction per radiologist read. - Patient was given a dose of Lovenox in the emergency room. She has been seen by hematology and was transitioned to heparin drip. She did very well and her symptoms improved. She was transitioned back to Lovenox with bridging to Coumadin outpatient per hematology recommendations. Lovenox teaching was done. Patient is to have repeat INR in a couple of days. She will follow-up with hematology and her primary care physician. - She did require oxygen throughout the hospital stay. She is discharged on home oxygen. This needs to be reassessed outpatient by her primary care physician Hypoxemia Secondary to above. Supplemental oxygen. Encourage patient to use incentive spirometer. DVT : See treatment course as above. Iron deficiency anemia Patient appeared to have responded well to outpatient iron infusion. Her H&H have since normalized. Hiatal hernia Continue PPI. Outpatient follow-up with general surgery is advised. Surgery will be deferred for 6 months Pleuritic chest pain Related to PE. Resolved. Pt Condition on Discharge: Good Discharge Disposition: Discharge Home Discharge Time: > 30 minutes Discharge Instructions Follow up Referrals: Hematology - 2-3 Days with Charlene Patel MD PCP Follow-up - 1 Week New Medications: Oxygen tank (Oxygen tank) 1 Ea Tank 2 LITER LUDMILA.CANULA CONTINUOUS Oxygen Concentrator Portable Gaseous 2 L/min via Nasal Cannula Continuous For 99 months HYPOXEMIA PREVENTION #1 CYLINDER Enoxaparin Inj (Lovenox Inj) 60 Mg/0.6 Ml Syr 60 MG SQ Q12H #10 INJECTION Warfarin (Coumadin) 5 Mg Tab 5 MG PO DAILY@1600 #30 TAB Continued Medications: Amlodipine (Norvasc) 2.5 Mg Tab 2.5 MG PO DAILY Blood Pressure Management #30 Ref 0 TAB Ascorbic Acid (Vitamin C) 100 Mg Chew 100 MG CHEW Nutritional Supplement Ref 0 TAB Calcium Carbonate-Cholecalciferol (Calcium 600 + D) 600-200 Mg-Unit Tab 1 TAB PO BID TAB Glucosamine (Glucosamine) 500 Mg Cap 500 MG PO DAILY Herbal Supplements Ref 0 CAP Omeprazole (Prilosec) 20 Mg Cap 20 MG PO DAILY #30 Ref 0 CAP Tay Noel MD February 07, 2017 11:51
[2017-02-07] MEDS ORDERED: OXYGENTANK NAS.CANULA (11:53)
== END 2017-02-07 16:00 | disposition home or self-care (01) | DRG 176 ==
LOC: PHED 00:42 → PHEDA 04:36 → PHICU 05:57
PROVIDERS: ADMIT Family Medicine; ATTEND Family Medicine
DX: I26.99 Other pulmonary embolism without acute cor pulmonale (principal); I82.442 Acute embolism and thrombosis of left tibial vein; I10 Essential (primary) hypertension; J98.11 Atelectasis; I82.812 Embolism and thrombosis of superficial veins of left lower extremity; D50.9 Iron deficiency anemia, unspecified; R09.02 Hypoxemia; K44.9 Diaphragmatic hernia without obstruction or gangrene; K21.9 Gastro-esophageal reflux disease without esophagitis; Z90.81 Acquired absence of spleen; Z23 Encounter for immunization
CPT/HCPCS: 71275; 80048; 80053; 81001; 82272; 82728; 83540; 83550; 83735; 83880; 85025; 85027; 85610; 85730; 87641; 90471; 90732; 93005; 93971; 94150; 94620; G0009; J1644; J1650; J2270; J2405; Q9967